=== PATIENT | male | born 1970 | race Caucasian/White ===

== ENCOUNTER 2018-06-16 00:27 | Emergency (ER) | payer OTHER, BC ==
[2018-06-16] MEDS ORDERED: Pepcid 20 MG VIAL IV (00:49)
[2018-06-16] MEDS ORDERED: BABY ASPIRIN 81 MG CHEW (00:49)
[2018-06-16] MEDS ORDERED: MAALOX ES 30 ML UNIT DOSE (00:50)
[2018-06-16] MEDS ORDERED: XYLOCAINE HCl Viscous (00:50)
[2018-06-16] MEDS: GI COCKTAIL 45 ML (Maalox/Lidocaine) PO (00:57)
[2018-06-16] MEDS: BABY ASPIRIN 81 MG CHEW PO (00:57)
[2018-06-16] MEDS: Pepcid 20 MG VIAL IV (00:58)
[2018-06-16 00:59] LABS: BASOPHIL % 0.5 % (0.0-0.4); Basophil (Absolute #) 0.03 (0-0.4); Eosinophil % 1.6 % (0.00-5.0); Eosinophil (Absolute #) 0.09 (0-0.5); Granulocytes % 41.2 % (36.0-66.0); Hematocrit 41.5 % (42-50); Lymphocyte (Absolute #) 2.52 (1.0-4.6); Lymphocytes % 45.1 % (24.0-44.0); Mean Cell Volume 88.3 fl (78-100); Mean Corpuscular Hemoglobin 31.9 pg (26-32); Mean Corpuscular Hgb Concent. 36.1 g/dl (32-36); Mean Platelet Volume 9.3 fl (6-9.5); Monocyte (Absolute #) 0.65 (0.0-1.3); Monocytes % 11.6 % (0.0-12.0); Platelet Count 233 K/mm3 (150-450); White Blood Count 5.6 K/mm3 (4.0-10.5)
[2018-06-16 01:03] LABS: ADD MANUAL DIFF? NO (NO)
[2018-06-16 01:11] LABS: PROTIME 11.9 SECONDS (8.83-12.87)
[2018-06-16 01:11] LABS: INR 1.02 (0.8-3.0)
[2018-06-16 01:19] LABS: D-DIMER QUANTITATION < 215 ng/mL (215-500)
[2018-06-16 01:25] LABS: ALBUMIN 4.6 g/dL (3.5-5.0); ALKALINE PHOSPHATASE 58 U/L (38-126); ANION GAP 14.8 MEQ/L (5-15); BLOOD UREA NITROGEN 21 mg/dL (9-20); CHLORIDE 100 mmol/L (98-107); Calcium 9.3 mg/dL (8.4-10.2); Carbon Dioxide 27 mmol/L (22-30); Creatinine 1 0.88 mg/dL (0.66-1.25); EST GLOMERULAR FILTRATION RATE > 60.0 ML/MIN; Glucose 259 mg/dL (74-106); Potassium 4.3 mmol/L (3.5-5.1); SGOT/AST 25 U/L (17-59); SGPT/ALT 34 U/L (0-50); SODIUM 138 mmol/L (137-145); Total Protein 7.4 g/dL (6.3-8.2)
[2018-06-16 01:28] LABS: TROPONIN < 0.012 ng/mL (0.000-0.034)
[2018-06-16 01:30] LABS: Group A Strep NEGATIVE (NEGATIVE)
[2018-06-16] MEDS ORDERED: MORPHINE SULFATE 4 MG INJ (01:49)
[2018-06-16] MEDS ORDERED: Zofran 4 MG/2 ML VIAL (01:49)
[2018-06-16] MEDS: MORPHINE SULFATE 4 MG INJ IV (01:52)
[2018-06-16] MEDS: Zofran 4 MG/2 ML VIAL IV (01:52)
[2018-06-16] MEDS ORDERED: CLINDAMYCIN-D5W 600 MG/50 ML*** 600 MG/50 ML BAG IV (02:29)
[2018-06-16] MEDS: CLINDAMYCIN-D5W 600 MG/50 ML*** 600 MG/50 ML BAG IV (02:32)
[2018-06-16 04:01] LABS: TROPONIN < 0.012 ng/mL (0.000-0.034)
[2018-06-16] MEDS ORDERED: TORAdol 30 mg Injection (04:28)
[2018-06-16] MEDS: TORAdol 30 mg Injection IV (04:31)
== END 2018-06-16 05:05 | disposition home or self-care (01) ==
LOC: ED 00:27
CPT/HCPCS: 36000; 36415; 71046; 80053; 83880; 84484; 85025; 85379; 85610; 87651; 93005; 93041; 96374; 96375; J1885; J2270; J2405

== ENCOUNTER 2018-12-17 10:25 | Day surgery (SDC) | payer BC, OTHER ==
[~2018-12-17 10:25] MED LIST: Lactated Ringers 1,000 ML IV ONE; Sensorcaine 0.25% 10 ML ONE
[2018-12-17] MEDS ORDERED: DIPRIVAN 200 MG/20 ML IV ONE (10:26)
[2018-12-17] MEDS ORDERED: Quelicin Fliptop 200 MG/10 ML IJ ONE (10:26)
[2018-12-17] MEDS ORDERED: Versed 2 MG/2 ML Injection IV ONE (10:26)
[2018-12-17] MEDS ORDERED: SUBLIMAZE 100 MCG/2 ML IV ONE (10:26)
[2018-12-17] MEDS ORDERED: CLINDAMYCIN-D5W 900 MG/50 ML IV ONE (10:26)
[2018-12-17] MEDS ORDERED: Lactated Ringers 1,000 ML IV ONE (10:33)
[2018-12-17] MEDS ORDERED: Lactated Ringers 1,000 ML IV SCH (11:00)
--- NOTE | 2018-12-17 12:30 | HP ---
REDICTATION: DATE OF SURGERY: 12/17/2018 HISTORY OF PRESENT ILLNESS: A 48 year-old gentleman had problems with three to four months ago had a left shoulder painful ruptured cyst site increasing in size, increasing pain. Placed him on some Bactrim and it had gotten smaller but was still present and desires excisional biopsy to reduce the risk of recurrent flare up, aches and pains in the future. PAST MEDICAL HISTORY: Diabetes, psoriatic arthritis. PAST SURGICAL HISTORY: Heart cath. Cholecystectomy. MEDICATIONS: Januvia, methotrexate, Humalog, Lyrica, lisinopril, Metformin, trazodone, folic acid, atorvastatin. ALLERGIES: PENICILLIN, KEFLEX, BENADRYL, ERYTHROMYCIN, BENICAR. FAMILY HISTORY: Cancer, diabetes. SOCIAL HISTORY: No smoking or alcohol abuse. REVIEW OF SYSTEMS: Twelve systems reviewed per admission assessment. No chest pain or palpitations other systems negative or noncontributory as above and per preadmission questionnaire. PHYSICAL EXAMINATION: GENERAL: No acute distress. HEENT: Sclerae nonicteric. NECK: No JVD. CHEST: Equal excursion, nonlabored breathing. CVS: Regular rate and rhythm. ABDOMEN: Soft, nontender. EXTREMITIES: No significant edema. NEURO: Alert, moving extremities symmetrically. No gross motor deficits noted. BACK: He has had persistent nodule or cyst left flank, back/shoulder area. IMPRESSION: Ruptured cyst site back that needs excision for definitive treatment. Risks and benefits explained in detail including but not limited to bleeding or infection, risk of wound dehiscence possibly requiring packing, possibility if there is infection at the time may require packing strip at the time of surgery. The fact that what we excise once he heals the wound will not recur but could get similar cyst or nodule adjacent to or elsewhere on his back or body, general risk of anesthesia, deep venous thrombosis, pulmonary embolism or pneumonia but not limited to. He understands and agrees to the planned procedure. We will proceed with excisional biopsy of ruptured back cyst site as an outpatient.
[2018-12-17] MEDS ORDERED: Triple Antibiotic Ointment ONE (12:38)
[2018-12-17 16:31] VITALS: BP 143/89; PULSE 77; O2SAT 96
--- NOTE | 2018-12-18 09:41 | OP ---
SURGERY DATE/TIME: 12/17/2018 1200 PREOPERATIVE DIAGNOSIS: Persistent ruptured cyst site back. POSTOPERATIVE DIAGNOSIS: Persistent ruptured cyst site back. PROCEDURE: Excisional biopsy ruptured back cyst site (approximately 3.5 cm with margins) with intermediate closure. SURGEON: Dr. Osman Oliva. SUPERVISOR POWER REACTOR: Víctor Walden, Medical Student III. ANESTHESIA: General. ESTIMATED BLOOD LOSS: Minimal. INDICATIONS: As noted above. Risks and benefits explained in detail and not limited to and consent obtained. DESCRIPTION OF PROCEDURE AND FINDINGS: The patient is taken to the operating room. General anesthesia induced. Back prepped and draped in usual sterile fashion in lateral position. Appropriate position and padding per anesthesia and OR staff. He is prepped and draped in usual sterile fashion. Marking out in spindle-shaped area around this palpable deeper cyst on the back, dissection carried down through the underlying fascia where it is carefully dissected off the underlying fascia. There was a small amount of caseous material exuding from the ruptured cyst site. It was able to be excised and measured about 3.5 cm with margins and passed off. There did not appear to be any evidence of any residual cyst material or any evidence of any cyst wall. There was a perforated pulsatile artery in the base of the wound controlled with 3-0 Vicryl suture ligature. Good hemostasis noted. Wound is irrigated out. Subcu closed with 3-0 Vicryl. Superficial subcu closed with 3-0 Vicryl. Skin closed with 4-0 Vicryl. Steri-Strips and sterile dressing applied. Patient tolerated the procedure well. There were no immediate complications. Findings were discussed with the family out in the waiting area. He is to avoid any heavy lifting or excessive back bending over the next three or four weeks. I will see him back in the office in a week and a half to two weeks for suture removal.
== END 2018-12-17 14:55 | disposition home or self-care (01) ==
LOC: SDC 10:25
PROVIDERS: ATTEND Surgery
DX: D23.5 Other benign neoplasm of skin of trunk (principal)
CPT/HCPCS: J0330; J2250; J2704; J3010; A9270-GY

== ENCOUNTER 2020-01-30 08:45 | Emergency (ER) | payer BC ==
[2020-01-30] MEDS ORDERED: BABY ASPIRIN 81 MG CHEW PO ONE (08:55)
[2020-01-30] MEDS ORDERED: Sodium Chloride 0.9% 1000 ML 1,000 ML IV STA (08:55)
[2020-01-30] MEDS ORDERED: Zofran 4 MG/2 ML VIAL IV ONE (08:57)
[2020-01-30] MEDS ORDERED: BABY ASPIRIN 81 MG CHEW ONE (09:03)
[2020-01-30] MEDS ORDERED: Zofran 4 MG/2 ML VIAL ONE ×2 (09:03→09:06)
[2020-01-30] MEDS ORDERED: Sodium Chloride 0.9% 1000 ML 1,000 ML ONE (09:04)
[2020-01-30 09:07] LABS: VBG BASE EXCESS -4.8 (-2.0-2.0); VBG HCO3- 19.7 meq/L (22-28); VBG HEMOGLOBIN 17.7; VBG O2 SATURATION 94.8 (95-100); VBG POTASSIUM 4.5 (3.5-5.1); VBG pH 7.37 (7.32-7.42)
[2020-01-30] MEDS ORDERED: DECADRON 10MG INJ. IV ONE (09:19)
--- NOTE | 2020-01-30 09:21 | ERPHSYRPT ---
- History of Present Illness Time Seen by Provider: 01/30/20 08:47 Source: patient Exam Limitations: no limitations Patient Subjective Stated Complaint: pt here for sob that started today with a nonproductive cough, and n/v/d for 36 hours now, he is unable to keep fluids d own, Triage Nursing Assessment: pt alert, arrived per wc, resp easy, chest clear, skin w/d/p. has mask in place, moves all ext well Physician History: Patient is here with nausea, vomiting, diarrhea. Has been going on for 2 to 3 days. Patient states that he woke up having more shortness of breath this morning. No falls or other trauma. No fever or chills. He does describe a nonproductive cough. He works from home. No known COVID-19 exposures. Patient does have shortness of breath but no chest pain, diaphoresis. Location: abdomen Quality: N/V/D Radiation: none Severity: moderate Duration: 2-3 Timing: gradual Modifying factors/associated signs and symptoms: home medication, OTC Allergies/Adverse Reactions: cephalexin [From Keflex] Allergy (Severe, Verified 01/30/20 08:50) diphenhydramine HCl [From Benadryl] Allergy (Severe, Verified 01/30/20 08:50) Tightness of Throat had to call EMS erythromycin base Allergy (Severe, Verified 01/30/20 08:50) Shortness of Breath olmesartan Allergy (Severe, Verified 01/30/20 08:50) Difficulty Swallowing Penicillins Allergy (Severe, Verified 01/30/20 08:50) Shortness of Breath unknown, states "when i was a kid,my mom always said" Home Medications: Atorvastatin Calcium [Lipitor] 40 mg PO HS 07/28/14 [History] Pregabalin [Lyrica 150Mg] 200 mg PO TID 07/28/14 [History] Folic Acid 1 mg PO DAILY 12/12/18 [History] Ibuprofen [Advil] 200 mg PO DAILY PRN PRN 12/12/18 [History] Insulin Glargine,Hum.rec.anlog [Santosh Solostar] 80 unit SQ DAILY 12/12/18 [History] Insulin Lispro [Humalog] 60 unit SQ TIDWMEALS 12/12/18 [History] Lisinopril/Hydrochlorothiazide [Lisinopril-Hctz 20-12.5 mg Tab] 1 each PO DAILY 12/12/18 [History] Metformin HCl 850 mg [Glucophage 850 MG] 850 mg PO BID 12/12/18 [History] Trazodone HCl 100 mg PO HS 12/12/18 [History] Methotrexate Sodium/Pf [Methotrexate 25 mg/ml Vial] 7.5 mg IJ WEEKLY 12/17/18 [History] Semaglutide [Ozempic] 1 ea DAILY 01/30/20 [History] Hx Tetanus, Diphtheria Vaccination/Date Given: No Hx Influenza Vaccination/Date Given: Yes Hx Pneumococcal Vaccination/Date Given: No Immunizations Up to Date: Yes Travel Risk - International Travel Have you traveled outside of the country in past 3 weeks: No - Coronavirus Screening Are you exhibiting any of the following symptoms?: Yes Symptoms: Cough: New Onset, Shortness of Breath, Vomiting/Diarrhea, Headaches/Body Aches/Fatigue Close contact with a COVID-19 positive Pt in past 14-21 Days: No - Review of Systems Constitutional: No Fever, No Chills Eyes: No Symptoms Ears, Nose, & Throat: No Symptoms Respiratory: Cough, Dyspnea Cardiac: No Chest Pain, No Edema, No Syncope Abdominal/Gastrointestinal: Nausea, Vomiting, Diarrhea, No Abdominal Pain Genitourinary Symptoms: No Dysuria Musculoskeletal: No Back Pain, No Neck Pain Skin: No Rash Neurological: No Dizziness, No Focal Weakness, No Sensory Changes Psychological: No Symptoms Endocrine: No Symptoms All Other Systems: Reviewed and Negative - Past Medical History Pertinent Past Medical History: Yes Neurological History: No Pertinent History ENT History: No Pertinent History Cardiac History: High Cholesterol, Hypertension Respiratory History: No Pertinent History Endocrine Medical History: Diabetes Type II Musculoskeletal History: Degenerative Disk Disease GI Medical History: No Pertinent History History: No Pertinent History Psycho-Social History: No Pertinent History Male Reproductive Disorders: No Pertinent History Other Medical History: psoriatic arthritis - Past Surgical History Past Surgical History: Yes Neuro Surgical History: No Pertinent History Cardiac: Cardiac Catheterization Respiratory: No Pertinent History Gastrointestinal: Cholecystectomy Genitourinary: No Pertinent History Musculoskeletal: Orthopedic Surgery Male Surgical History: No Pertinent History Other Surgical History: inj. in back - Social History Smoking Status: Never smoker Exposure to second hand smoke: No Drug Use: none Patient Lives Alone: No - Nursing Vital Signs Nursing Vital Signs: Initial Vital Signs Temperature 98.7 F 01/30/20 08:46 Pulse Rate 96 H 01/30/20 08:46 Respiratory Rate 24 01/30/20 08:46 Blood Pressure 138/86 01/30/20 08:46 O2 Sat by Pulse Oximetry 95 01/30/20 08:46 Pain Scale Pain Intensity 0 - Physical Exam General Appearance: no apparent distress, alert Eye Exam: PERRL/EOMI, eyes nml inspection Ears, Nose, Throat Exam: normal ENT inspection, TMs normal, pharynx normal, moist mucous membranes Neck Exam: normal inspection, non-tender, supple, full range of motion Respiratory Exam: normal breath sounds, lungs clear, No respiratory distress Cardiovascular Exam: regular rate/rhythm, normal heart sounds, normal peripheral pulses Gastrointestinal/Abdomen Exam: soft, normal bowel sounds, No tenderness, No mass Back Exam: normal inspection, normal range of motion, No CVA tenderness, No vertebral tenderness Extremity Exam: normal inspection, normal range of motion, pelvis stable Neurologic Exam: alert, oriented x 3, cooperative, normal mood/affect, nml cerebellar function, nml station & gait, sensation nml, No motor deficits Skin Exam: normal color, warm, dry, No rash Lymphatic Exam: No adenopathy SpO2: 94 - Course Nursing assessment & vital signs reviewed: Yes EKG Interpreted by Me: RATE, Sinus Rhythm (Patient has sinus rhythm, appears to have a repolarization pattern with nonspecific ST changes. However, we will repeat EKG in 20 minutes to ensure that this is not a developing STEMI) Ordered Tests: Active Orders 24 hr Category Date Time Status EKG-ER Only STAT Care 01/30/20 08:55 Active EKG-ER Only STAT Care 01/30/20 09:12 Active IV Insertion STAT Care 01/30/20 08:55 Active ABDOMEN AND PELVIS W CONTRAST [CT] Stat Exams 01/30/20 09:53 Completed CHEST 2 VIEWS (PA AND LAT) Stat Exams 01/30/20 08:55 Completed CHEST WITH CONTRAST [CT] Stat Exams 01/30/20 09:53 Completed BLOOD CULTURE Stat Lab 01/30/20 08:55 Received CBC W DIFF Stat Lab 01/30/20 08:55 Completed CMP Stat Lab 01/30/20 08:55 Completed CULTURE,URINE Stat Lab 01/30/20 12:42 Received LIPASE Stat Lab 01/30/20 08:55 Completed Lactic Acid Stat Lab 01/30/20 09:03 Completed MAGNESIUM Stat Lab 01/30/20 08:55 Completed NT PRO BNP Stat Lab 01/30/20 08:55 Completed TROPONIN Q3H Lab 01/30/20 09:00 Completed TROPONIN Q3H Lab 01/30/20 12:10 Completed TROPONIN Q3H Lab 01/30/20 15:00 Ordered TROPONIN Q3H Lab 01/30/20 18:00 Ordered TROPONIN Q3H Lab 01/30/20 21:00 Ordered UA W/RFX UR CULTURE Stat Lab 01/30/20 12:42 Received VBG [VENOUS BLOOD GAS] Stat Lab 01/30/20 09:03 Completed Medication Summary Discontinued Medications Generic Name Dose Route Start Last Admin Trade Name Freq PRN Reason Stop Dose Admin Aspirin 324 mg 01/30/20 08:55 01/30/20 09:06 Baby Aspirin 81 Mg Chew PO 01/30/20 08:56 324 mg STAT ONE Administration Aspirin Confirm 01/30/20 09:03 Baby Aspirin 81 Mg Chew Administered 01/30/20 09:04 Dose 324 mg .ROUTE .STK-MED ONE Dexamethasone Sodium Phosphate 10 mg 01/30/20 09:19 01/30/20 09:24 Decadron 10mg Inj. IV 01/30/20 09:20 10 mg STAT ONE Administration Dexamethasone Sodium Phosphate Confirm 01/30/20 09:23 Decadron 10mg Inj. Administered 01/30/20 09:24 Dose 10 mg .ROUTE .STK-MED ONE Sodium Chloride 1,000 mls @ 999 mls/hr 01/30/20 08:55 01/30/20 11:03 Sodium Chloride 0.9% 1000 Ml IV 01/30/20 09:55 Infused .Q1H1M STA Infusion Sodium Chloride Confirm 01/30/20 09:04 Sodium Chloride 0.9% 1000 Ml Administered 01/30/20 09:05 Dose 1,000 mls @ ud .ROUTE .STK-MED ONE Ondansetron HCl 8 mg 01/30/20 08:57 01/30/20 09:05 Zofran 4 Mg/2 Ml Vial IV 01/30/20 08:58 8 mg STAT ONE Administration Ondansetron HCl Confirm 01/30/20 09:03 Zofran 4 Mg/2 Ml Vial Administered 01/30/20 09:04 Dose 4 mg .ROUTE .STK-MED ONE Ondansetron HCl Confirm 01/30/20 09:06 Zofran 4 Mg/2 Ml Vial Administered 01/30/20 09:07 Dose 4 mg .ROUTE .STK-MED ONE Lab/Rad Data: Laboratory Result Diagrams 01/30/20 08:55 01/30/20 08:55 Laboratory Results 01/30/20 01/30/20 01/30/20 Range/Units 12:10 09:03 09:03 WBC (4.0-10.5) K/mm3 RBC (4.1-5.6) M/mm3 Hgb (12.5-18.0) gm/dl Hct (42-50) % MCV (78-100) fl MCH (26-32) pg MCHC (32-36) g/dl RDW (11.5-14.0) % Plt Count (150-450) K/mm3 MPV (7.5-11.0) fl Gran % (36.0-66.0) % Eos # (Auto) (0-0.5) Absolute Lymphs (auto) (1.0-4.6) Absolute Monos (auto) (0.0-1.3) Lymphocytes % (24.0-44.0) % Monocytes % (0.0-12.0) % Eosinophils % (0.00-5.0) % Basophils % (0.0-0.4) % Absolute Granulocytes (1.4-6.9) Basophils # (0-0.4) pO2/FiO2 Ratio 21 % VBG pH 7.37 (7.32-7.42) VBG pCO2 at Pat Temp 34 L (42-55) mm/Hg VBG pO2 at Pat Temp 68 H (25-40) mm/Hg VBG HCO3 19.7 L (22-28) meq/L VBG O2 Sat (Kai) 94.8 L (95-100) VBG Base Excess -4.8 L (-2.0-2.0) VBG Hemoglobin 17.7 VBG Carboxyhemoglobin 2.0 (0.0-6.9) % T HGB POC Potassium 4.5 (3.5-5.1) Sodium (137-145) mmol/L Potassium (3.5-5.1) mmol/L Chloride (98-107) mmol/L Carbon Dioxide (22-30) mmol/L Anion Gap (5-15) MEQ/L BUN (9-20) mg/dL Creatinine (0.66-1.25) mg/dL Estimated GFR ML/MIN Glucose (74-106) mg/dL Lactic Acid 1.2 (0.4-2.0) Calcium (8.4-10.2) mg/dL Magnesium (1.6-2.3) mg/dL Total Bilirubin (0.2-1.3) mg/dL AST (17-59) U/L ALT (0-50) U/L Alkaline Phosphatase (38-126) U/L Troponin I < 0.012 (0.000-0.034) ng/mL NT-Pro-B Natriuret Pep (0-900) pg/mL Serum Total Protein (6.3-8.2) g/dL Albumin (3.5-5.0) g/dL Lipase (23-300) U/L 01/30/20 01/30/20 01/30/20 Range/Units 09:00 08:55 08:55 WBC 10.9 H (4.0-10.5) K/mm3 RBC 5.76 H (4.1-5.6) M/mm3 Hgb 17.7 (12.5-18.0) gm/dl Hct 49.1 (42-50) % MCV 85.2 (78-100) fl MCH 30.7 (26-32) pg MCHC 36.0 (32-36) g/dl RDW 13.4 (11.5-14.0) % Plt Count 332 (150-450) K/mm3 MPV 9.9 (7.5-11.0) fl Gran % 75.2 H (36.0-66.0) % Eos # (Auto) 0.07 (0-0.5) Absolute Lymphs (auto) 1.99 (1.0-4.6) Absolute Monos (auto) 0.60 (0.0-1.3) Lymphocytes % 18.3 L (24.0-44.0) % Monocytes % 5.5 (0.0-12.0) % Eosinophils % 0.6 (0.00-5.0) % Basophils % 0.4 (0.0-0.4) % Absolute Granulocytes 8.17 H (1.4-6.9) Basophils # 0.04 (0-0.4) pO2/FiO2 Ratio % VBG pH (7.32-7.42) VBG pCO2 at Pat Temp (42-55) mm/Hg VBG pO2 at Pat Temp (25-40) mm/Hg VBG HCO3 (22-28) meq/L VBG O2 Sat (Kai) (95-100) VBG Base Excess (-2.0-2.0) VBG Hemoglobin VBG Carboxyhemoglobin (0.0-6.9) % T HGB POC Potassium (3.5-5.1) Sodium 135 L (137-145) mmol/L Potassium 4.4 (3.5-5.1) mmol/L Chloride 102 (98-107) mmol/L Carbon Dioxide 18 L (22-30) mmol/L Anion Gap 18.8 H (5-15) MEQ/L BUN 37 H (9-20) mg/dL Creatinine 1.50 H (0.66-1.25) mg/dL Estimated GFR 52.4 ML/MIN Glucose 248 H (74-106) mg/dL Lactic Acid (0.4-2.0) Calcium 9.7 (8.4-10.2) mg/dL Magnesium 1.2 L (1.6-2.3) mg/dL Total Bilirubin 1.70 H (0.2-1.3) mg/dL AST 24 (17-59) U/L ALT 43 (0-50) U/L Alkaline Phosphatase 82 (38-126) U/L Troponin I < 0.012 (0.000-0.034) ng/mL NT-Pro-B Natriuret Pep 13.2 (0-900) pg/mL Serum Total Protein 9.0 H (6.3-8.2) g/dL Albumin 5.3 H (3.5-5.0) g/dL Lipase 79 (23-300) U/L - Progress Progress: improved Progress Note: 01/30/20 09:29 Differential diagnosis includes STEMI, infection, pneumonia, DKA, unstable angina - We'll obtain basic labs, fluids, EKG, troponin, chest x-ray - O2 saturations consistently greater than 95%. - CXR shows no pneumonia, pneumothorax - my read 01/30/20 09:41 Repeat EKG at [address] repolarization he has not evolved any new ST segment elevation EKGs were done approximately 40 minutes apart there appears to be no obvious changes consistent with a developing STEMI my read. 01/30/20 13:03 Patient feeling improved. Repeat troponin remained negative as expected. Overall, patient feeling improved. No further episodes of diarrhea or vomiting in the ER. No further episodes of chest pain. At this point time we will discharge patient home. Will need close follow-up with PCP. Return here for new or changing symptoms. Counseled pt/family regarding: lab results, diagnosis, need for follow-up, rad results - Departure Departure Disposition: Home Clinical Impression: Vomiting and diarrhea Condition: Stable Critical Care Time: No Instructions: [place] Diet, Nausea and Vomiting, Adult
[2020-01-30] MEDS ORDERED: DECADRON 10MG INJ. ONE (09:23)
[2020-01-30 09:40] LABS: Absolute Neutrophil Ct (ANC) 8.17 (1.4-6.9); BASOPHIL % 0.4 % (0.0-0.4); Basophil (Absolute #) 0.04 (0-0.4); Eosinophil % 0.6 % (0.00-5.0); Eosinophil (Absolute #) 0.07 (0-0.5); Hematocrit 49.1 % (42-50); Hemoglobin 17.7 gm/dl (12.5-18.0); Lymphocyte (Absolute #) 1.99 (1.0-4.6); Lymphocytes % 18.3 % (24.0-44.0); Mean Cell Volume 85.2 fl (78-100); Mean Corpuscular Hemoglobin 30.7 pg (26-32); Mean Platelet Volume 9.9 fl (7.5-11.0); Monocytes % 5.5 % (0.0-12.0); Neutrophil % 75.2 % (36.0-66.0); Platelet Count 332 K/mm3 (150-450); Red Blood Count 5.76 M/mm3 (4.1-5.6); Red Cell Distribution Width 13.4 % (11.5-14.0); White Blood Count 10.9 K/mm3 (4.0-10.5)
--- NOTE | 2020-01-30 09:40 | XRAY ---
Indication: Chest pain, short of breath, diarrhea. Comparison: June 16, 2018. PA/lateral chest remains clear. Heart is not enlarged. Bony thorax intact again with minimal degenerative changes. Impression: Continued nonacute chest.
[2020-01-30 09:54] LABS: ALBUMIN 5.3 g/dL (3.5-5.0); ANION GAP 18.8 MEQ/L (5-15); BILIRUBIN,TOTAL 1.7 mg/dL (0.2-1.3); Calcium 9.7 mg/dL (8.4-10.2); Creatinine 1 1.5 mg/dL (0.66-1.25); MAGNESIUM 1.2 mg/dL (1.6-2.3); NT PRO BNP 13.2 pg/mL (0-900); Potassium 4.4 mmol/L (3.5-5.1)
--- NOTE | 2020-01-30 11:39 | XRAY ---
Indication: Chest pain and short of breath. Diarrhea and vomiting. Multiple contiguous axial images obtained through the abdomen and pelvis using 80 cc Isovue 370 contrast only as ordered. Comparison: None. CT chest reported separately. Noncontrasted stomach and bowel loops are nonobstructed. Normal appendix. Mild scattered descending and lesser degree sigmoid diverticulosis. Minimal fluid distending colon including rectum favoring clinically reported diarrhea. Previous cholecystectomy. No free fluid/air. Spleen is enlarged measuring 16 cm. Remaining liver, pancreas, spleen, adrenal glands, kidneys, ureters, bladder, and aorta appear unremarkable. No pathologic retroperitoneal lymphadenopathy. Osseous structures intact with minimal degenerative changes throughout the lumbar spine and mild degenerative changes of both hips. No ventral or inguinal hernias. Impression: 1. Minimal fluid distended colon favoring clinically reported diarrhea. Mild colonic diverticulosis without diverticulitis. 2. Incidental splenomegaly and chronic bony findings. 3. Remaining CT abdomen/pelvis with contrast exam is negative.
--- NOTE | 2020-01-30 11:42 | XRAY ---
Indication: Chest pain and short of breath. Diarrhea and vomiting. Multiple contiguous axial images obtained through the chest using 80 cc Isovue 370 contrast and PE protocol. Comparison: March 19, 2010. There is good opacification of the pulmonary arteries to include the lobar and segmental branches. Again no filling defect/pulmonary embolus. Heart is not enlarged. Aorta is normal in course and caliber. No pathologic mediastinal/hilar lymphadenopathy. Lungs inflated with minimal medial right middle lobe and inferior lingula fibrosis/scarring. No suspicious pulmonary mass, infiltrate, or effusion. Bony thorax intact. CT abdomen reported separately. Impression: Continued negative for pulmonary embolus. Incidental minimal pulmonary fibrosis/scarring. No acute cardiopulmonary abnormalities.
[2020-01-30 12:43] LABS: Appearance CLEAR (CLEAR); Bilirubin NEGATIVE (NEGATIVE); Blood NEGATIVE Ery/ul (0-5); Epithelial Cells RARE /HPF (FEW); Glucose 150 mg/dL (NEGATIVE); Hyaline Casts 0-2 /LPF (0-2); Ketones NEGATIVE (NEGATIVE); Leukocyte Esterase NEGATIVE (NEGATIVE); Mucus SLIGHT /HPF (NEGATIVE); Nitrite NEGATIVE (NEGATIVE); Protein,Urine Dip NEGATIVE (Negative); Specific Gravity 1.055 (1.005-1.025); Urobilinogen NEGATIVE mg/dL (0-1)
[2020-01-30 13:25] VITALS: BP 116/78; PULSE 82; O2SAT 95
== END 2020-01-30 13:25 | disposition home or self-care (01) ==
LOC: ED 08:45
DX: R11.10 Vomiting, unspecified (principal); R19.7 Diarrhea, unspecified; I10 Essential (primary) hypertension; E11.9 Type 2 diabetes mellitus without complications; Z79.899 Other long term (current) drug therapy
CPT/HCPCS: 36000; 36415; 71046; 71260; 74177; 80053; 81001; 82805; 83605; 83690; 83735; 83880; 84484; 85025; 87040; 87086; 93005; 96360; 96374; 96375; 99285; J1100; J2405; A9270-GY

== ENCOUNTER 2020-12-17 15:55 | Emergency (ER) | payer BC, OTHER ==
--- NOTE | 2020-12-17 15:59 | ERPHSYRPT ---
- History of Present Illness Time Seen by Provider: 12/17/20 15:58 Source: patient Exam Limitations: no limitations Physician History: This is an obese, diabetic 50-year-old white male with history of hypertension and presents with right groin abscess. Approximately 6 days ago he noticed pimple present and he attempted to squeeze and pop this area. It did not go away and in fact worsened in the last 2 days. He had associated fever present. The redness and pain has increased in this area as well. Timing/Duration: day(s) (6) Quality: painful Severity: mild Location: other (Right groin) Possible Causes: no cause identified Associated Symptoms: fever, swelling/mass/lumps (Right groin) Allergies/Adverse Reactions: cephalexin [From Keflex] Allergy (Severe, Verified 12/17/20 16:13) diphenhydramine HCl [From Benadryl] Allergy (Severe, Verified 12/17/20 16:13) Tightness of Throat had to call EMS erythromycin base Allergy (Severe, Verified 12/17/20 16:13) Shortness of Breath olmesartan Allergy (Severe, Verified 12/17/20 16:13) Difficulty Swallowing Penicillins Allergy (Severe, Verified 12/17/20 16:13) Shortness of Breath unknown, states "when i was a kid,my mom always said" Home Medications: Atorvastatin Calcium [Lipitor] 40 mg PO HS 07/28/14 [History] Pregabalin [Lyrica 150Mg] 200 mg PO TID 07/28/14 [History] Folic Acid 1 mg PO DAILY 12/12/18 [History] Ibuprofen [Advil] 200 mg PO DAILY PRN PRN 12/12/18 [History] Insulin Lispro [Humalog] 60 unit SQ TIDWMEALS 12/12/18 [History] Lisinopril/Hydrochlorothiazide [Lisinopril-Hctz 20-12.5 mg Tab] 1 each PO DAILY 12/12/18 [History] Metformin HCl 850 mg [Glucophage 850 MG] 850 mg PO BID 12/12/18 [History] Trazodone HCl 100 mg PO HS 12/12/18 [History] Methotrexate Sodium/Pf [Methotrexate 25 mg/ml Vial] 7.5 mg IJ WEEKLY 12/17/18 [History] NPH, Human Insulin Isophane [Humulin N] 40 unit SQ HS 12/17/20 [History] Omeprazole Magnesium 20 mg PO DAILY 12/17/20 [History] Oxcarbazepine [Trileptal] 300 mg PO DAILY 12/17/20 [History] Hx Tetanus, Diphtheria Vaccination/Date Given: No Hx Influenza Vaccination/Date Given: No Hx Pneumococcal Vaccination/Date Given: No Travel Risk - International Travel Have you traveled outside of the country in past 3 weeks: No - Coronavirus Screening Are you exhibiting any of the following symptoms?: No Close contact with a COVID-19 positive Pt in past 14-21 Days: No - Review of Systems Constitutional: Fever Eyes: No Symptoms Ears, Nose, & Throat: No Symptoms Respiratory: No Symptoms Cardiac: No Symptoms Abdominal/Gastrointestinal: No Symptoms Genitourinary Symptoms: No Symptoms Musculoskeletal: No Symptoms Skin: Other (Process right groin) Neurological: No Symptoms Psychological: No Symptoms Endocrine: No Symptoms Hematologic/Lymphatic: No Symptoms Immunological/Allergic: No Symptoms All Other Systems: Reviewed and Negative - Past Medical History Pertinent Past Medical History: Yes Neurological History: No Pertinent History ENT History: No Pertinent History Cardiac History: High Cholesterol, Hypertension Respiratory History: No Pertinent History Endocrine Medical History: Diabetes Type II Musculoskeletal History: Degenerative Disk Disease GI Medical History: No Pertinent History History: No Pertinent History Psycho-Social History: No Pertinent History Male Reproductive Disorders: No Pertinent History Other Medical History: psoriatic arthritis - Past Surgical History Past Surgical History: Yes Neuro Surgical History: No Pertinent History Cardiac: Cardiac Catheterization Respiratory: No Pertinent History Gastrointestinal: Cholecystectomy Genitourinary: No Pertinent History Musculoskeletal: Orthopedic Surgery Male Surgical History: No Pertinent History Other Surgical History: inj. in back - Social History Smoking Status: Never smoker Exposure to second hand smoke: No Drug Use: none Patient Lives Alone: No - Nursing Vital Signs Nursing Vital Signs: Initial Vital Signs Temperature 98.3 F 12/17/20 16:00 Pulse Rate 84 12/17/20 16:00 Blood Pressure 162/85 12/17/20 16:00 O2 Sat by Pulse Oximetry 97 12/17/20 16:00 Pain Scale Pain Intensity 4 - Physical Exam General Appearance: no apparent distress, alert, anxiety, obese Eye Exam: PERRL/EOMI, eyes nml inspection Ears, Nose, Throat Exam: normal ENT inspection, moist mucous membranes Neck Exam: normal inspection, non-tender, supple, full range of motion Respiratory Exam: normal breath sounds, accessory muscle use, No chest tenderness Cardiovascular Exam: regular rate/rhythm, normal heart sounds, normal peripheral pulses Gastrointestinal/Abdomen Exam: soft, normal bowel sounds, No tenderness Rectal Exam: not done Back Exam: normal inspection, normal range of motion, No CVA tenderness Extremity Exam: normal inspection, normal range of motion, pelvis stable Neurologic Exam: alert, oriented x 3, cooperative, 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 There is redness and induration present. There is mild tenderness to palpation.) Lymphatic Exam: No adenopathy SpO2 Interpretation: normal O2 Delivery: Room Air Procedures - Incision and Drainage Time of Procedure: 17:00 Site: 8 groin Anesthesia: 1% Lidocaine cc's of anesthesia: 2 Blade Size: 15 I & D Procedure: betadine prep, culture obtained Results: moderate amount pus Progress: No complications. Patient told the procedure well. - Course Nursing assessment & vital signs reviewed: Yes - Progress Progress: improved, pain not gone completely, re-examined Counseled pt/family regarding: diagnosis, need for follow-up - Departure Departure Disposition: Home Clinical Impression: Abscess of groin, right Condition: Stable Critical Care Time: No Referrals: ESTHER PIERCE [Primary Care Provider] - Additional Instructions: When you get home today, go into the shower and use soap and water to clean out the incision and drainage site. Do not apply any ointments or lotions or cream to the site. Use a hairdryer or blot dry the incision site. Cover with a bandage. Repeat this twice a day. Return to the emergency department in 24 hours for reevaluation. Take your medication as prescribed. Prescriptions: Hydrocodone/APAP 5/325 [[place] 5/325 mg] 1 each PO Q8H PRN PRN #10 tablet MDD 3 PRN Reason: Pain Smz/Tmp Ds Tablet [Bactrim Ds Tablet] 1 udtab PO BID #14 tablet
[2020-12-17 16:13] VITALS: BP 162/85; PULSE 84; O2SAT 97
[2020-12-17] MEDS ORDERED: NORCO 5/325 MG PO ONE (17:23)
[2020-12-17] MEDS ORDERED: BACTRIM DS TABLET PO ONE ×2 (17:23→17:31)
[2020-12-17] MEDS ORDERED: NORCO 5/325 MG ONE (17:31)
== END 2020-12-17 17:39 | disposition home or self-care (01) ==
LOC: ED 15:55
DX: L02.214 Cutaneous abscess of groin (principal); I10 Essential (primary) hypertension; E11.9 Type 2 diabetes mellitus without complications; Z79.899 Other long term (current) drug therapy
CPT/HCPCS: 87070; 87077; 87186; 99283; A9270-GY

== ENCOUNTER 2021-05-09 14:27 | Observation (INO) | payer OTHER ==
[2021-05-09] MEDS ORDERED: TORAdol 30 mg Injection IV ONE ×2 (14:57→17:30)
[2021-05-09] MEDS ORDERED: Sodium Chloride 0.9% 1000 ML 1,000 ML IV STA (14:57)
[2021-05-09] MEDS ORDERED: TORAdol 30 mg Injection ONE ×2 (14:59→17:39)
[2021-05-09] MEDS ORDERED: Sodium Chloride 0.9% 1000 ML 1,000 ML ONE ×2 (14:59→18:53)
--- NOTE | 2021-05-09 15:00 | ERPHSYRPT ---
- History of Present Illness Time Seen by Provider: 05/09/21 14:33 Historian: patient Exam Limitations: no limitations Patient Subjective Stated Complaint: Abdominal pain Triage Nursing Assessment: Patient ambulated back to ED and transferred self to bed. Patient A+O x3. Patient's skin pink, warm and dry. Patient complains of right lower abdominal pain 2/10 constant aching intermittent sharp pain that gets worse when movement. Rebound tenderness noted to RLQ. Patient complains of nausea, but denies vomiting. Abdomen soft and round with BS X 4. Patient has been running temp as high as 103.0 Physician History: 50 years old male presented in the ER with chief complaint of right lower quadrant/right flank pain for the last 2 days, moderate to severe sharp nature pain, aggravated with movements, palpation and partial relief with taking [id number] pain medications. Reports associated nausea but no vomiting or diarrhea. Also reports fever of 103 last night. [facility]. Does have history of cholecystectomy. Denies any urinary symptoms. Timing/Duration: day(s) (2), gradual onset, worse Activities at Onset: rest Quality: sharpness Abdominal Pain Onset Location: RLQ, flank Pain Radiation: no radiation Severity of Pain-Max: moderate Severity of Pain-Current: moderate Modifying Factors: Improves With: rest. Worsens With: movement, palpation Associated Symptoms: nausea Previous symptoms: no prior history Allergies/Adverse Reactions: cephalexin [From Keflex] Allergy (Severe, Verified 05/09/21 14:38) diphenhydramine HCl [From Benadryl] Allergy (Severe, Verified 05/09/21 14:38) Tightness of Throat had to call EMS erythromycin base Allergy (Severe, Verified 05/09/21 14:38) Shortness of Breath olmesartan Allergy (Severe, Verified 05/09/21 14:38) Difficulty Swallowing Penicillins Allergy (Severe, Verified 05/09/21 14:38) Shortness of Breath unknown, states "when i was a kid,my mom always said" morphine Allergy (Verified 05/09/21 14:39) Home Medications: Atorvastatin Calcium [Lipitor] 40 mg PO HS 07/28/14 [History] Pregabalin [Lyrica 150Mg] 200 mg PO TID 07/28/14 [History] Folic Acid 1 mg PO DAILY 12/12/18 [History] Insulin Lispro [Humalog] 60 unit SQ TIDWMEALS 12/12/18 [History] Lisinopril/Hydrochlorothiazide [Lisinopril-Hctz 20-12.5 mg Tab] 1 each PO DAILY 12/12/18 [History] Metformin HCl 850 mg [Glucophage 850 MG] 850 mg PO BID 12/12/18 [History] Trazodone HCl 100 mg PO HS 12/12/18 [History] Methotrexate Sodium/Pf [Methotrexate 25 mg/ml Vial] 7.5 mg IJ WEEKLY 12/17/18 [History] NPH, Human Insulin Isophane [Humulin N] 40 unit SQ HS 12/17/20 [History] Omeprazole Magnesium 20 mg PO DAILY 12/17/20 [History] Oxcarbazepine [Trileptal] 300 mg PO DAILY 12/17/20 [History] Hx Tetanus, Diphtheria Vaccination/Date Given: No Hx Influenza Vaccination/Date Given: Yes (2020) Hx Pneumococcal Vaccination/Date Given: No Immunizations Up to Date: Yes Travel Risk - International Travel Have you traveled outside of the country in past 3 weeks: No - Coronavirus Screening Are you exhibiting any of the following symptoms?: No Close contact with a COVID-19 positive Pt in past 14-21 Days: No - Vaccine Status Have you recieved a Covid-19 vaccination: Yes [place]: Moderna - Vaccination Dates Date of 2cond Vaccination (if applicable): 12/02/2020 - Past Medical History Pertinent Past Medical History: Yes Neurological History: No Pertinent History ENT History: No Pertinent History Cardiac History: High Cholesterol, Hypertension Respiratory History: No Pertinent History Endocrine Medical History: Diabetes Type II Musculoskeletal History: Degenerative Disk Disease GI Medical History: No Pertinent History History: No Pertinent History Psycho-Social History: No Pertinent History Male Reproductive Disorders: No Pertinent History Other Medical History: psoriatic arthritis - Past Surgical History Past Surgical History: Yes Neuro Surgical History: No Pertinent History Cardiac: Cardiac Catheterization Respiratory: No Pertinent History Gastrointestinal: Cholecystectomy Genitourinary: No Pertinent History Musculoskeletal: Orthopedic Surgery Male Surgical History: No Pertinent History Other Surgical History: inj. in back - Social History Smoking Status: Never smoker Exposure to second hand smoke: No Drug Use: none Patient Lives Alone: No - Nursing Vital Signs Nursing Vital Signs: Initial Vital Signs Temperature 98.7 F 05/09/21 14:43 Pulse Rate 87 05/09/21 14:43 Respiratory Rate 18 05/09/21 14:43 Blood Pressure 177/88 05/09/21 14:43 O2 Sat by Pulse Oximetry 95 05/09/21 14:43 Pain Scale Pain Intensity 2 - Physical Exam General Appearance: no apparent distress, alert Eye Exam: PERRL/EOMI Ears, Nose, Throat Exam: normal ENT inspection Neck Exam: normal inspection, supple, full range of motion Respiratory Exam: normal breath sounds, lungs clear Cardiovascular Exam: regular rate/rhythm, normal heart sounds Gastrointestinal/Abdomen Exam: soft, tenderness, guarding (Right lower quadrant /flank) Back Exam: normal inspection, normal range of motion, CVA tenderness (Right) Extremity Exam: normal inspection, normal range of motion Neurologic Exam: alert, oriented x 3, cooperative Skin Exam: normal color SpO2 Interpretation: normal SpO2: 95 O2 Delivery: Room Air Ordered Tests: Active Orders 24 hr Category Date Time Status IV Insertion STAT Care 05/09/21 14:57 Active NPO (ED) STAT Care 05/09/21 14:57 Active POCT Glucose Check STAT Care 05/09/21 18:09 Active ABDOMEN AND PELVIS W CONTRAST [CT] Stat Exams 05/09/21 14:57 Taken CBC W DIFF Stat Lab 05/09/21 15:03 Completed CMP Stat Lab 05/09/21 15:03 Completed LIPASE Stat Lab 05/09/21 15:03 Completed POCT GLUCOSE Stat Lab 05/09/21 18:08 Completed UA W/RFX UR CULTURE Stat Lab 05/09/21 14:59 Completed Medication Summary Generic Name Dose Route Start Last Admin Trade Name Freq PRN Reason Stop Dose Admin Levofloxacin/Dextrose 750 mg in 150 mls @ 100 mls/hr 05/09/21 18:50 05/09/21 19:26 Levofloxacin 750mg/150ml D5w IV 05/09/21 20:19 100 ml/hr STAT STA 100 mls/hr Administration Sodium Chloride 1,000 mls @ 125 mls/hr 05/09/21 19:00 05/09/21 18:57 Sodium Chloride 0.9% 1000 Ml IV 06/08/21 18:59 125 mls/hr .Q8H RYAN Administration Discontinued Medications Generic Name Dose Route Start Last Admin Trade Name Freq PRN Reason Stop Dose Admin Sodium Chloride 1,000 mls @ 999 mls/hr 05/09/21 14:57 05/09/21 16:04 Sodium Chloride 0.9% 1000 Ml IV 05/09/21 15:57 Infused .Q1H1M STA Infusion Sodium Chloride Confirm 05/09/21 14:59 Sodium Chloride 0.9% 1000 Ml Administered 05/09/21 15:00 Dose 1,000 mls @ ud .ROUTE .STK-MED ONE Metronidazole 500 mg in 100 mls @ 200 mls/hr 05/09/21 18:50 05/09/21 19:27 Flagyl 500 Mg Ivpb IV 05/09/21 19:19 Infused STAT STA Infusion Metronidazole Confirm 05/09/21 18:53 Flagyl 500 Mg Ivpb Administered 05/09/21 18:54 Dose 500 mg in 100 mls @ ud IV .STK-MED ONE Levofloxacin/Dextrose Confirm 05/09/21 19:22 Levofloxacin 750mg/150ml D5w Administered 05/09/21 19:23 Dose 750 mg in 150 mls @ ud IV .STK-MED ONE Insulin Human Regular 6 unit 05/09/21 18:10 05/09/21 18:14 Humulin R IV 05/09/21 18:11 6 unit STAT ONE Administration Protocol Insulin Human Regular Confirm 05/09/21 18:12 Humulin R Administered 05/09/21 18:13 Dose 6 unit .ROUTE .STK-MED ONE Ketorolac Tromethamine 30 mg 05/09/21 14:57 05/09/21 15:02 Toradol 30 Mg Injection IV 05/09/21 14:58 30 mg STAT ONE Administration Ketorolac Tromethamine Confirm 05/09/21 14:59 Toradol 30 Mg Injection Administered 05/09/21 15:00 Dose 30 mg .ROUTE .STK-MED ONE Ketorolac Tromethamine Confirm 05/09/21 17:39 Toradol 30 Mg Injection Administered 05/09/21 17:40 Dose 30 mg .ROUTE .STK-MED ONE Ketorolac Tromethamine 30 mg 05/09/21 17:30 05/09/21 17:30 Toradol 30 Mg Injection IV 05/09/21 17:31 30 mg STAT ONE Administration Lab/Rad Data: Laboratory Result Diagrams 05/09/21 15:03 05/09/21 15:03 Laboratory Results 05/09/21 05/09/21 05/09/21 Range/Units 18:08 15:03 15:03 WBC 8.2 (4.0-10.5) K/mm3 RBC 5.17 (4.1-5.6) M/mm3 Hgb 15.3 (12.5-18.0) gm/dl Hct 43.0 (42-50) % MCV 83.2 (78-100) fl MCH 29.6 (26-32) pg MCHC 35.6 (32-36) g/dl RDW 12.9 (11.5-14.0) % Plt Count 182 (150-450) K/mm3 MPV 9.1 (7.5-11.0) fl Gran % 76.8 H (36.0-66.0) % Eos # (Auto) 0.03 (0-0.5) Absolute Lymphs (auto) 1.33 (1.0-4.6) Absolute Monos (auto) 0.49 (0.0-1.3) Lymphocytes % 16.3 L (24.0-44.0) % Monocytes % 6.0 (0.0-12.0) % Eosinophils % 0.4 (0.00-5.0) % Basophils % 0.5 (0.0-0.4) % Absolute Granulocytes 6.27 (1.4-6.9) Basophils # 0.04 (0-0.4) Sodium 130 L (137-145) mmol/L Potassium 4.3 (3.5-5.1) mmol/L Chloride 96 L (98-107) mmol/L Carbon Dioxide 22 (22-30) mmol/L Anion Gap 16.2 H (5-15) MEQ/L BUN 19 (9-20) mg/dL Creatinine 0.98 (0.66-1.25) mg/dL Estimated GFR > 60.0 ML/MIN Glucose 417 H (74-106) mg/dL POC Glucometer 366 H (74 to 106) mg/dL Calcium 8.9 (8.4-10.2) mg/dL Total Bilirubin 2.70 H (0.2-1.3) mg/dL AST 19 (17-59) U/L ALT 25 (0-50) U/L Alkaline Phosphatase 71 (38-126) U/L Serum Total Protein 7.4 (6.3-8.2) g/dL Albumin 4.1 (3.5-5.0) g/dL Lipase 117 (23-300) U/L Urine Color (YELLOW) Urine Appearance (CLEAR) Urine pH (5-6) Ur Specific Marydel (1.005-1.025) Urine Protein (Negative) Urine Ketones (NEGATIVE) Urine Blood (0-5) Shlomo/ul Urine Nitrite (NEGATIVE) Urine Bilirubin (NEGATIVE) Urine Urobilinogen (0-1) mg/dL Ur Leukocyte Esterase (NEGATIVE) Urine WBC (Auto) (0-5) /HPF Urine RBC (Auto) (0-2) /HPF U Epithel Cells (Auto) (FEW) /HPF Urine Bacteria (Auto) (NEGATIVE) /HPF Urine Mucus (Auto) (NEGATIVE) /HPF Urine Culture Reflexed (NO) Urine Glucose (NEGATIVE) mg/dL 05/09/21 Range/Units 14:59 WBC (4.0-10.5) K/mm3 RBC (4.1-5.6) M/mm3 Hgb (12.5-18.0) gm/dl Hct (42-50) % MCV (78-100) fl MCH (26-32) pg MCHC (32-36) g/dl RDW (11.5-14.0) % Plt Count (150-450) K/mm3 MPV (7.5-11.0) fl Gran % (36.0-66.0) % Eos # (Auto) (0-0.5) Absolute Lymphs (auto) (1.0-4.6) Absolute Monos (auto) (0.0-1.3) Lymphocytes % (24.0-44.0) % Monocytes % (0.0-12.0) % Eosinophils % (0.00-5.0) % Basophils % (0.0-0.4) % Absolute Granulocytes (1.4-6.9) Basophils # (0-0.4) Sodium (137-145) mmol/L Potassium (3.5-5.1) mmol/L Chloride (98-107) mmol/L Carbon Dioxide (22-30) mmol/L Anion Gap (5-15) MEQ/L BUN (9-20) mg/dL Creatinine (0.66-1.25) mg/dL Estimated GFR ML/MIN Glucose (74-106) mg/dL POC Glucometer (74 to 106) mg/dL Calcium (8.4-10.2) mg/dL Total Bilirubin (0.2-1.3) mg/dL AST (17-59) U/L ALT (0-50) U/L Alkaline Phosphatase (38-126) U/L Serum Total Protein (6.3-8.2) g/dL Albumin (3.5-5.0) g/dL Lipase (23-300) U/L Urine Color YELLOW (YELLOW) Urine Appearance CLEAR (CLEAR) Urine pH 5.0 (5-6) Ur Specific Marydel 1.031 (1.005-1.025) Urine Protein NEGATIVE (Negative) Urine Ketones SMALL (NEGATIVE) Urine Blood NEGATIVE (0-5) Shlomo/ul Urine Nitrite NEGATIVE (NEGATIVE) Urine Bilirubin NEGATIVE (NEGATIVE) Urine Urobilinogen NEGATIVE (0-1) mg/dL Ur Leukocyte Esterase NEGATIVE (NEGATIVE) Urine WBC (Auto) NONE (0-5) /HPF Urine RBC (Auto) NONE (0-2) /HPF U Epithel Cells (Auto) NONE (FEW) /HPF Urine Bacteria (Auto) NONE (NEGATIVE) /HPF Urine Mucus (Auto) SLIGHT (NEGATIVE) /HPF Urine Culture Reflexed NO (NO) Urine Glucose >=500 (NEGATIVE) mg/dL - Progress Progress: improved, pain not gone completely, re-examined Progress Note: 05/09/21 18:51 50 years old is evaluated for right-sided abdominal pain. Is given fluids and symptomatic treatment, on reevaluation feeling better but pain is not completely resolved. Has normal white count, elevated glucose but not in DKA. Given IV insulin. Obtain CT abdomen pelvis with contrast which showed duodenal stranding with some adjacent fluid and some swelling around uncinate process/head of pancreas but no free air. Has normal lipase. Could be duodenal diverticulitis. Given a dose of antibiotics. Discussed with Dr. Esparza and patient is accepted for admission. Discussed with .: Valdemar Will see patient in: hospital (observation) Counseled pt/family regarding: lab results, diagnosis, rad results - Departure Departure Disposition: Observation Clinical Impression: Diverticulitis of duodenum Condition: Stable Critical Care Time: No Referrals: ESTHER PIERCE NP [Primary Care Provider] -
[2021-05-09 15:02] LABS: Absolute Neutrophil Ct (ANC) 6.27 (1.4-6.9); BASOPHIL % 0.5 % (0.0-0.4); Basophil (Absolute #) 0.04 (0-0.4); Eosinophil % 0.4 % (0.00-5.0); Eosinophil (Absolute #) 0.03 (0-0.5); Hemoglobin 15.3 gm/dl (12.5-18.0); Lymphocyte (Absolute #) 1.33 (1.0-4.6); Lymphocytes % 16.3 % (24.0-44.0); Mean Cell Volume 83.2 fl (78-100); Mean Corpuscular Hemoglobin 29.6 pg (26-32); Mean Corpuscular Hgb Concent. 35.6 g/dl (32-36); Mean Platelet Volume 9.1 fl (7.5-11.0); Monocyte (Absolute #) 0.49 (0.0-1.3); Neutrophil % 76.8 % (36.0-66.0); Platelet Count 182 K/mm3 (150-450); Red Blood Count 5.17 M/mm3 (4.1-5.6); Red Cell Distribution Width 12.9 % (11.5-14.0); White Blood Count 8.2 K/mm3 (4.0-10.5)
[2021-05-09 15:10] LABS: ALBUMIN 4.1 g/dL (3.5-5.0); ALKALINE PHOSPHATASE 71 U/L (38-126); ANION GAP 16.2 MEQ/L (5-15); BLOOD UREA NITROGEN 19 mg/dL (9-20); CHLORIDE 96 mmol/L (98-107); Calcium 8.9 mg/dL (8.4-10.2); Carbon Dioxide 22 mmol/L (22-30); Creatinine 1 0.98 mg/dL (0.66-1.25); EST GLOMERULAR FILTRATION RATE > 60.0 ML/MIN; Glucose 417 mg/dL (74-106); LIPASE 117 U/L (23-300); Potassium 4.3 mmol/L (3.5-5.1); SGOT/AST 19 U/L (17-59); SGPT/ALT 25 U/L (0-50); SODIUM 130 mmol/L (137-145); Total Protein 7.4 g/dL (6.3-8.2)
[2021-05-09 15:12] LABS: Appearance CLEAR (CLEAR); Bilirubin NEGATIVE (NEGATIVE); Blood NEGATIVE Ery/ul (0-5); Glucose >=500 mg/dL (NEGATIVE); Ketones SMALL (NEGATIVE); Leukocyte Esterase NEGATIVE (NEGATIVE); Mucus SLIGHT /HPF (NEGATIVE); Nitrite NEGATIVE (NEGATIVE); Protein,Urine Dip NEGATIVE (Negative); Specific Gravity 1.031 (1.005-1.025); Urobilinogen NEGATIVE mg/dL (0-1)
[2021-05-09] MEDS ORDERED: HUMULIN R IV ONE (18:10)
[2021-05-09] MEDS ORDERED: HUMULIN R ONE (18:12)
[2021-05-09] MEDS ORDERED: LEVOFLOXACIN 750MG/150ML D5W 750 MG/150 ML BAG IV STA (18:50)
[2021-05-09] MEDS ORDERED: FLAGYL 500 MG IVPB 500 MG/100 ML BAG IV STA (18:50)
[2021-05-09] MEDS ORDERED: FLAGYL 500 MG IVPB 500 MG/100 ML BAG IV ONE (18:53)
[2021-05-09] MEDS ORDERED: Sodium Chloride 0.9% 1000 ML 1,000 ML IV SCH (19:00)
[2021-05-09] MEDS ORDERED: LEVOFLOXACIN 750MG/150ML D5W 750 MG/150 ML BAG IV ONE (19:22)
--- NOTE | 2021-05-09 19:56 | XRAY ---
Indication: Right lower quadrant pain. Multiple contiguous axial images obtained through the abdomen and pelvis using 100 cc Isovue 370 contrast. Comparison: January 30, 2020. Lung bases demonstrates minimal dependent atelectasis. Heart not enlarged. Noncontrasted stomach and bowel loops are nonobstructed. Descending and transverse duodenum demonstrates new mild wall thickening and stranding favoring duodenitis. Tiny free fluid. No walled off fluid or free air. Normal air-filled appendix. Again mild scattered colonic diverticulosis without diverticulitis. Spleen remains enlarged today measuring 16.2 cm. Again previous cholecystectomy. Remaining liver, pancreas, spleen, adrenal glands, kidneys, ureters, bladder, and aorta are unremarkable. No pathologic retroperitoneal lymphadenopathy. Osseous structures intact. Again with minimal degenerative changes throughout the lumbar spine and both hips. Impression: 1. New duodenal wall thickening and stranding favoring duodenitis. Tiny reactive free fluid. 2. Again incidental colonic diverticulosis, splenomegaly, and chronic bony findings. Comment: Preliminary interpretation made by [facility]. No critical discrepancy.
[2021-05-09] MEDS ORDERED: DUONEB 0.5-3 MG/3 ml Neb IH PRN (21:47)
[2021-05-09] MEDS ORDERED: HUMALOG SQ PRN (21:47)
[2021-05-09] MEDS ORDERED: MORPHINE SULFATE 4 MG INJ IV PRN (21:47)
[2021-05-09] MEDS ORDERED: Hydromorphone 1 mg/ml Injection IV PRN (23:14)
[2021-05-09] MEDS ORDERED: OXYCODONE-ACETAMINOPHEN 10-325 PO PRN (23:15)
[2021-05-09] MEDS ORDERED: Hydromorphone 1 mg/ml Injection ONE (23:18)
[2021-05-09] MEDS ORDERED: ZOCOR 20MG PO SCH (23:30)
[2021-05-09] MEDS ORDERED: Lantus Insulin SQ SCH (23:30)
[2021-05-09] MEDS ORDERED: DESYREL 50 MG PO SCH (23:30)
[2021-05-09] MEDS ORDERED: hydroDIURIL 25 MG PO SCH (23:30)
[2021-05-09] MEDS ORDERED: Pepcid 20 MG VIAL IV SCH (23:30)
[2021-05-09] MEDS ORDERED: Zestril 20 MG PO SCH (23:30)
[2021-05-09] MEDS ORDERED: Lyrica 50MG PO ONE (23:30)
[2021-05-09] MEDS ORDERED: Trileptal 300 MG Tablet PO SCH (23:30)
[2021-05-09] MEDS ORDERED: Protonix 40MG Tablet PO SCH (23:30)
[2021-05-09] MEDS ORDERED: LYRICA 100MG ONE (23:54)
[2021-05-10] MEDS: Sodium Chloride 0.9% 1000 ML 1,000 ML IV SCH ×2 (00:03→03:57)
[2021-05-10] MEDS: FLAGYL 500 MG IVPB 500 MG/100 ML BAG IV SCH ×2 (00:05→05:38)
[2021-05-10 04:13] VITALS: O2SAT 94
[2021-05-10 05:29] LABS: BASOPHIL % 0.3 % (0.0-0.4); Basophil (Absolute #) 0.02 (0-0.4); Eosinophil % 0.7 % (0.00-5.0); Eosinophil (Absolute #) 0.05 (0-0.5); Hematocrit 38.6 % (42-50); Hemoglobin 13.2 gm/dl (12.5-18.0); Lymphocyte (Absolute #) 1.36 (1.0-4.6); Lymphocytes % 19.6 % (24.0-44.0); Mean Cell Volume 85.2 fl (78-100); Mean Corpuscular Hemoglobin 29.1 pg (26-32); Mean Corpuscular Hgb Concent. 34.2 g/dl (32-36); Mean Platelet Volume 9.2 fl (7.5-11.0); Monocyte (Absolute #) 0.51 (0.0-1.3); Monocytes % 7.3 % (0.0-12.0); Neutrophil % 72.1 % (36.0-66.0); Platelet Count 178 K/mm3 (150-450); Red Blood Count 4.53 M/mm3 (4.1-5.6); Red Cell Distribution Width 12.9 % (11.5-14.0); White Blood Count 6.9 K/mm3 (4.0-10.5)
[2021-05-10 05:37] LABS: ALBUMIN 3.4 g/dL (3.5-5.0); ALKALINE PHOSPHATASE 56 U/L (38-126); AMYLASE 49 U/L (30-110); ANION GAP 13.9 MEQ/L (5-15); BLOOD UREA NITROGEN 17 mg/dL (9-20); CHLORIDE 99 mmol/L (98-107); Carbon Dioxide 23 mmol/L (22-30); Creatinine 1 0.83 mg/dL (0.66-1.25); EST GLOMERULAR FILTRATION RATE > 60.0 ML/MIN; Glucose 204 mg/dL (74-106); LIPASE 73 U/L (23-300); Potassium 3.9 mmol/L (3.5-5.1); SGOT/AST 19 U/L (17-59); SGPT/ALT 23 U/L (0-50); SODIUM 132 mmol/L (137-145); Total Protein 6.3 g/dL (6.3-8.2)
--- NOTE | 2021-05-10 08:49 | PCM.HP ---
History of Present Illness - Chief Complaint Chief Complaint: Duodenum diverticulitis History of Present Illness: Mr.THOMAS ROYAL is a 50 year old male pt of Dr. Jones with DM II on insulin who was admitted with RLQ pain and nausea. He started having pain 3d ago, went to [facility] 2 d ago. Was called at home by and advised to go to ER so he could have CT abd/pelvis done. CT showed duodenitis. Pt describes intense rebound pain at [facility] care. Reported fever at home to 103. +N, no V. No diarrhea, no melena or hematochezia. Was sitting in chair Fri a.m. watching TV and noticed his abd hurt when he pushed on it - intense cramping - RUQ and RLQ. Worse with eating and throughout the day. Next day, temp (auricular) was >103, was alternating Tylenol and ibuprofen. Labs and XR sent and pt discharged to home. SERVER ASSISTANT called to check on him the next day, and recommended he go to ER for CT (was concerned about appendicitis due to rebound pain). Pain was 9/10 in ER. Today not having any pain, but maybe 1/10 with pushing on it. Supposed to be on methotrexate, but hasn't been on it for "a very long time." Needs to be going to his rheumatology appt which is scheduled for 8:30 tomorrow. Has been out of humalog for over 5 weeks - used to take 2-3 units with meals. Sees Natalie Mc and has called her office; having difficulty setting up an appointment. - Review of Systems Constitutional: Fever Abdominal/Gastrointestinal: Abdominal Pain, Nausea Musculoskeletal: Back Pain (arthritis, chronic) Neurological: Headache (x 5 wks, frontl, gets yearly), Parasthesia (feet and hands, chronic) All Other Systems: Reviewed and Negative Medications & Allergies Home Medications: Home Medication List Insulin Lispro [Humalog] 1 unit SQ TIDWMEALS 12/12/18 [History Confirmed 05/09/21] Lisinopril/Hydrochlorothiazide [Lisinopril-Hctz 20-12.5 mg Tab] 1 tab PO QHS 12/12/18 [History Confirmed 05/09/21] Metformin HCl 850 mg [Glucophage 850 MG] 850 mg PO BID 05/15/19 [History Confirmed 05/09/21] Trazodone HCl 100 mg PO HS 12/12/18 [History Confirmed 05/09/21] Omeprazole Magnesium 20 mg PO QHS 12/17/20 [History Confirmed 05/09/21] Oxcarbazepine [Trileptal] 300 mg PO QHS 12/17/20 [History Confirmed 05/09/21] Atorvastatin Calcium 40 mg PO QHS 05/09/21 [History Confirmed 05/09/21] Insulin Glargine,Hum.rec.anlog [Touaaron Solostmaya] 40 units SQ QHS 05/09/21 [History Confirmed 05/09/21] Pregabalin 200 mg PO TID 05/09/21 [History Confirmed 05/09/21] Allergies/Adverse Reactions: Allergies Allergy/AdvReac Type Severity Reaction Status Date / Time cephalexin [From Keflex] Allergy Severe Verified 05/09/21 14:38 diphenhydramine HCl Allergy Severe Tightness Verified 05/09/21 14:38 [From Benadryl] of Throat erythromycin base Allergy Severe Shortness Verified 05/09/21 14:38 of Breath olmesartan Allergy Severe Difficulty Verified 05/09/21 14:38 Swallowing Penicillins Allergy Severe Shortness Verified 05/09/21 14:38 of Breath morphine Allergy Verified 05/09/21 21:52 - Past Medical History Past Medical History: Yes Neurological History: No Pertinent History ENT History: No Pertinent History Cardiac History: High Cholesterol, Hypertension Respiratory History: No Pertinent History Endocrine Medical History: Diabetes Type II Musculoskelatal History: Degenerative Disk Disease GI Medical History: No Pertinent History History: No Pertinent History Pyscho-Social History: No Pertinent History Male Reproductive Disorders: No Pertinent History Comment: psoriatic arthritis - Past Surgical History Past Surgical History: Yes Neuro Surgical History: No Pertinent History Cardiac History: Cardiac Catheterization Respiratory Surgery: No Pertinent History GI Surgical History: Cholecystectomy Genitourinary Surgical Hx: No Pertinent History Musculskeletal Surgical Hx: Orthopedic Surgery Male Surgical History: No Pertinent History Other Surgical History: cyst removed from back 2018, 3 spinal injections - Social History Smoking Status: Never smoker Exposure to second hand smoke: No Alcohol: None Drug Use: none - Physical Exam Vital Signs: Vital Signs - 24 hr Temp Pulse Resp BP Pulse Ox 05/10/21 04:12 97.8 F 73 16 121/61 94 L 05/09/21 21:00 78 20 121/82 96 05/09/21 20:00 80 16 96 05/09/21 19:53 95 05/09/21 19:00 80 16 130/74 96 05/09/21 18:00 98.1 F 76 18 125/88 96 05/09/21 17:00 80 20 96 05/09/21 16:14 84 16 127/75 96 05/09/21 15:29 88 16 156/113 97 05/09/21 14:43 98.7 F 87 18 177/88 95 General Appearance: no apparent distress, alert Neurologic Exam: oriented x 3, cooperative Eye Exam: eyes nml inspection Ears, Nose, Throat Exam: moist mucous membranes Neck Exam: normal inspection, non-tender, No lymphadenopathy Respiratory Exam: normal breath sounds, chest tenderness, No crackles/rales, No rhonchi, No wheezing Cardiovascular Exam: regular rate/rhythm, normal heart sounds, No murmur Gastrointestinal/Abdomen Exam: soft, normal bowel sounds, tenderness (epigastrum, mild), No distention, No mass, No guarding, No rebound Back Exam: normal inspection, No CVA tenderness Extremity Exam: No pedal edema, No swelling Skin Exam: normal color, warm, dry, No rash Results - Labs Lab/Micro Results: Lab Results-Last 24 Hours 05/09/21 05/09/21 05/09/21 Range/Units 14:59 15:03 15:03 WBC 8.2 (4.0-10.5) K/mm3 RBC 5.17 (4.1-5.6) M/mm3 Hgb 15.3 (12.5-18.0) gm/dl Hct 43.0 (42-50) % MCV 83.2 (78-100) fl MCH 29.6 (26-32) pg MCHC 35.6 (32-36) g/dl RDW 12.9 (11.5-14.0) % Plt Count 182 (150-450) K/mm3 MPV 9.1 (7.5-11.0) fl Gran % 76.8 H (36.0-66.0) % Eos # (Auto) 0.03 (0-0.5) Absolute Lymphs (auto) 1.33 (1.0-4.6) Absolute Monos (auto) 0.49 (0.0-1.3) Lymphocytes % 16.3 L (24.0-44.0) % Monocytes % 6.0 (0.0-12.0) % Eosinophils % 0.4 (0.00-5.0) % Basophils % 0.5 (0.0-0.4) % Absolute Granulocytes 6.27 (1.4-6.9) Basophils # 0.04 (0-0.4) Sodium 130 L (137-145) mmol/L Potassium 4.3 (3.5-5.1) mmol/L Chloride 96 L (98-107) mmol/L Carbon Dioxide 22 (22-30) mmol/L Anion Gap 16.2 H (5-15) MEQ/L BUN 19 (9-20) mg/dL Creatinine 0.98 (0.66-1.25) mg/dL Estimated GFR > 60.0 ML/MIN Glucose 417 H (74-106) mg/dL POC Glucometer (74 to 106) mg/dL Calcium 8.9 (8.4-10.2) mg/dL Total Bilirubin 2.70 H (0.2-1.3) mg/dL AST 19 (17-59) U/L ALT 25 (0-50) U/L Alkaline Phosphatase 71 (38-126) U/L Serum Total Protein 7.4 (6.3-8.2) g/dL Albumin 4.1 (3.5-5.0) g/dL Amylase (30-110) U/L Lipase 117 (23-300) U/L Urine Color YELLOW (YELLOW) Urine Appearance CLEAR (CLEAR) Urine pH 5.0 (5-6) Ur Specific [place] 1.031 (1.005-1.025) Urine Protein NEGATIVE (Negative) Urine Ketones SMALL (NEGATIVE) Urine Blood NEGATIVE (0-5) Shlomo/ul Urine Nitrite NEGATIVE (NEGATIVE) Urine Bilirubin NEGATIVE (NEGATIVE) Urine Urobilinogen NEGATIVE (0-1) mg/dL Ur Leukocyte Esterase NEGATIVE (NEGATIVE) Urine WBC (Auto) NONE (0-5) /HPF Urine RBC (Auto) NONE (0-2) /HPF U Epithel Cells (Auto) NONE (FEW) /HPF Urine Bacteria (Auto) NONE (NEGATIVE) /HPF Urine Mucus (Auto) SLIGHT (NEGATIVE) /HPF Urine Culture Reflexed NO (NO) Urine Glucose >=500 (NEGATIVE) mg/dL SARS-CoV-2 (PCR) (NEGATIVE) 05/09/21 05/09/21 05/09/21 Range/Units 18:08 20:16 21:59 WBC (4.0-10.5) K/mm3 RBC (4.1-5.6) M/mm3 Hgb (12.5-18.0) gm/dl Hct (42-50) % MCV (78-100) fl MCH (26-32) pg MCHC (32-36) g/dl RDW (11.5-14.0) % Plt Count (150-450) K/mm3 MPV (7.5-11.0) fl Gran % (36.0-66.0) % Eos # (Auto) (0-0.5) Absolute Lymphs (auto) (1.0-4.6) Absolute Monos (auto) (0.0-1.3) Lymphocytes % (24.0-44.0) % Monocytes % (0.0-12.0) % Eosinophils % (0.00-5.0) % Basophils % (0.0-0.4) % Absolute Granulocytes (1.4-6.9) Basophils # (0-0.4) Sodium (137-145) mmol/L Potassium (3.5-5.1) mmol/L Chloride (98-107) mmol/L Carbon Dioxide (22-30) mmol/L Anion Gap (5-15) MEQ/L BUN (9-20) mg/dL Creatinine (0.66-1.25) mg/dL Estimated GFR ML/MIN Glucose (74-106) mg/dL POC Glucometer 366 H 242 H (74 to 106) mg/dL Calcium (8.4-10.2) mg/dL Total Bilirubin (0.2-1.3) mg/dL AST (17-59) U/L ALT (0-50) U/L Alkaline Phosphatase (38-126) U/L Serum Total Protein (6.3-8.2) g/dL Albumin (3.5-5.0) g/dL Amylase (30-110) U/L Lipase (23-300) U/L Urine Color (YELLOW) Urine Appearance (CLEAR) Urine pH (5-6) Ur Specific [place] (1.005-1.025) Urine Protein (Negative) Urine Ketones (NEGATIVE) Urine Blood (0-5) Shlomo/ul Urine Nitrite (NEGATIVE) Urine Bilirubin (NEGATIVE) Urine Urobilinogen (0-1) mg/dL Ur Leukocyte Esterase (NEGATIVE) Urine WBC (Auto) (0-5) /HPF Urine RBC (Auto) (0-2) /HPF U Epithel Cells (Auto) (FEW) /HPF Urine Bacteria (Auto) (NEGATIVE) /HPF Urine Mucus (Auto) (NEGATIVE) /HPF Urine Culture Reflexed (NO) Urine Glucose (NEGATIVE) mg/dL SARS-CoV-2 (PCR) NEGATIVE (NEGATIVE) 05/10/21 05/10/21 05/10/21 Range/Units 04:50 04:50 07:36 WBC 6.9 (4.0-10.5) K/mm3 RBC 4.53 (4.1-5.6) M/mm3 Hgb 13.2 (12.5-18.0) gm/dl Hct 38.6 L (42-50) % MCV 85.2 (78-100) fl MCH 29.1 (26-32) pg MCHC 34.2 (32-36) g/dl RDW 12.9 (11.5-14.0) % Plt Count 178 (150-450) K/mm3 MPV 9.2 (7.5-11.0) fl Gran % 72.1 H (36.0-66.0) % Eos # (Auto) 0.05 (0-0.5) Absolute Lymphs (auto) 1.36 (1.0-4.6) Absolute Monos (auto) 0.51 (0.0-1.3) Lymphocytes % 19.6 L (24.0-44.0) % Monocytes % 7.3 (0.0-12.0) % Eosinophils % 0.7 (0.00-5.0) % Basophils % 0.3 (0.0-0.4) % Absolute Granulocytes 5.00 (1.4-6.9) Basophils # 0.02 (0-0.4) Sodium 132 L (137-145) mmol/L Potassium 3.9 (3.5-5.1) mmol/L Chloride 99 (98-107) mmol/L Carbon Dioxide 23 (22-30) mmol/L Anion Gap 13.9 (5-15) MEQ/L BUN 17 (9-20) mg/dL Creatinine 0.83 (0.66-1.25) mg/dL Estimated GFR > 60.0 ML/MIN Glucose 204 H (74-106) mg/dL POC Glucometer 148 H (74 to 106) mg/dL Calcium 8.0 L (8.4-10.2) mg/dL Total Bilirubin 1.70 H (0.2-1.3) mg/dL AST 19 (17-59) U/L ALT 23 (0-50) U/L Alkaline Phosphatase 56 (38-126) U/L Serum Total Protein 6.3 (6.3-8.2) g/dL Albumin 3.4 L (3.5-5.0) g/dL Amylase 49 (30-110) U/L Lipase 73 (23-300) U/L Urine Color (YELLOW) Urine Appearance (CLEAR) Urine pH (5-6) Ur Specific [place] (1.005-1.025) Urine Protein (Negative) Urine Ketones (NEGATIVE) Urine Blood (0-5) Shlomo/ul Urine Nitrite (NEGATIVE) Urine Bilirubin (NEGATIVE) Urine Urobilinogen (0-1) mg/dL Ur Leukocyte Esterase (NEGATIVE) Urine WBC (Auto) (0-5) /HPF Urine RBC (Auto) (0-2) /HPF U Epithel Cells (Auto) (FEW) /HPF Urine Bacteria (Auto) (NEGATIVE) /HPF Urine Mucus (Auto) (NEGATIVE) /HPF Urine Culture Reflexed (NO) Urine Glucose (NEGATIVE) mg/dL SARS-CoV-2 (PCR) (NEGATIVE) Accuchecks Date 05/09/21 Date 05/09/21 Time 21:45 Time 18:09 - Radiology Impressions Radiology Exams & Impressions: Radiology Procedures Category Date Time Status ABDOMEN AND PELVIS W CONTRAST [CT] Stat Exams 05/09/21 14:57 Completed Assessment/Plan (1) Duodenitis Current Visit: Yes Status: Acute Assessment & Plan: Much improved today. WBC were wnl. If tolerates bland diet, home on bland x 3d and flagyl/levaquin to finish 7d. F/u with Rosemarie Pedroza in 1 week. Code(s): K29.80 - DUODENITIS WITHOUT BLEEDING (2) Diabetes mellitus Current Visit: Yes Status: Acute Code(s): E11.9 - TYPE 2 DIABETES MELLITUS WITHOUT COMPLICATIONS (3) Diabetic peripheral neuropathy Current Visit: Yes Status: Acute Code(s): E11.42 - TYPE 2 DIABETES MELLITUS WITH DIABETIC POLYNEUROPATHY (4) Chronic back pain Current Visit: Yes Status: Acute Code(s): M54.9 - DORSALGIA, UNSPECIFIED; G89.29 - OTHER CHRONIC PAIN
--- NOTE | 2021-05-10 09:14 | PCM.DS ---
Discharge Summary Date of Admission: 05/09/21 21:46 Admitting Physician: CARON JAIN DO Primary Care Provider: ESTHER PEDROZA Allergies Allergies cephalexin [From Keflex] Allergy (Severe, Verified 05/09/21 14:38) diphenhydramine HCl [From Benadryl] Allergy (Severe, Verified 05/09/21 14:38) Tightness of Throat had to call EMS erythromycin base Allergy (Severe, Verified 05/09/21 14:38) Shortness of Breath olmesartan Allergy (Severe, Verified 05/09/21 14:38) Difficulty Swallowing Penicillins Allergy (Severe, Verified 05/09/21 14:38) Shortness of Breath unknown, states "when i was a kid,my mom always said" morphine Allergy (Verified 05/09/21 21:52) burning of skin and head Hospital Summary - Hospital Course Hospital Course: Mr. Contreras is a 50 yo male pt of Rosemarie Pedroza from [facility] with DM, peripheral neuropathy, psoriasis with arthropathy and chronic back pain who was admitted through ER with 3d of abd pain and duodenitis. WBC nl and CT abd/pelvis with thickening of duodenum. Places on flagyl and levaquin. This morning he is feeling much better. If he tolerates bland food, he will be discahrged to home on levaquin and flagyl to finish 7d total. - Vitals & Intake/Output Vital Signs: Vital Signs Temperature 97.8 F 05/10/21 04:12 Pulse Rate 73 05/10/21 04:12 Respiratory Rate 16 05/10/21 04:12 Blood Pressure 121/61 05/10/21 04:12 O2 Sat by Pulse Oximetry 94 L 05/10/21 04:12 Intake & Output: Intake & Output 05/07/21 05/08/21 05/09/21 05/10/21 11:59 11:59 11:59 11:59 Intake Total 1300 Balance 1300 Weight 114.6 kg - Lab Result Diagrams: 05/10/21 04:50 05/10/21 04:50 Lab Results-Last 24 Hrs: Lab Results-Last 24 Hours 05/09/21 05/09/21 05/09/21 Range/Units 14:59 15:03 15:03 WBC 8.2 (4.0-10.5) K/mm3 RBC 5.17 (4.1-5.6) M/mm3 Hgb 15.3 (12.5-18.0) gm/dl Hct 43.0 (42-50) % MCV 83.2 (78-100) fl MCH 29.6 (26-32) pg MCHC 35.6 (32-36) g/dl RDW 12.9 (11.5-14.0) % Plt Count 182 (150-450) K/mm3 MPV 9.1 (7.5-11.0) fl Gran % 76.8 H (36.0-66.0) % Eos # (Auto) 0.03 (0-0.5) Absolute Lymphs (auto) 1.33 (1.0-4.6) Absolute Monos (auto) 0.49 (0.0-1.3) Lymphocytes % 16.3 L (24.0-44.0) % Monocytes % 6.0 (0.0-12.0) % Eosinophils % 0.4 (0.00-5.0) % Basophils % 0.5 (0.0-0.4) % Absolute Granulocytes 6.27 (1.4-6.9) Basophils # 0.04 (0-0.4) Sodium 130 L (137-145) mmol/L Potassium 4.3 (3.5-5.1) mmol/L Chloride 96 L (98-107) mmol/L Carbon Dioxide 22 (22-30) mmol/L Anion Gap 16.2 H (5-15) MEQ/L BUN 19 (9-20) mg/dL Creatinine 0.98 (0.66-1.25) mg/dL Estimated GFR > 60.0 ML/MIN Glucose 417 H (74-106) mg/dL POC Glucometer (74 to 106) mg/dL Calcium 8.9 (8.4-10.2) mg/dL Total Bilirubin 2.70 H (0.2-1.3) mg/dL AST 19 (17-59) U/L ALT 25 (0-50) U/L Alkaline Phosphatase 71 (38-126) U/L Serum Total Protein 7.4 (6.3-8.2) g/dL Albumin 4.1 (3.5-5.0) g/dL Amylase (30-110) U/L Lipase 117 (23-300) U/L Urine Color YELLOW (YELLOW) Urine Appearance CLEAR (CLEAR) Urine pH 5.0 (5-6) Ur Specific [place] 1.031 (1.005-1.025) Urine Protein NEGATIVE (Negative) Urine Ketones SMALL (NEGATIVE) Urine Blood NEGATIVE (0-5) Shlomo/ul Urine Nitrite NEGATIVE (NEGATIVE) Urine Bilirubin NEGATIVE (NEGATIVE) Urine Urobilinogen NEGATIVE (0-1) mg/dL Ur Leukocyte Esterase NEGATIVE (NEGATIVE) Urine WBC (Auto) NONE (0-5) /HPF Urine RBC (Auto) NONE (0-2) /HPF U Epithel Cells (Auto) NONE (FEW) /HPF Urine Bacteria (Auto) NONE (NEGATIVE) /HPF Urine Mucus (Auto) SLIGHT (NEGATIVE) /HPF Urine Culture Reflexed NO (NO) Urine Glucose >=500 (NEGATIVE) mg/dL SARS-CoV-2 (PCR) (NEGATIVE) 05/09/21 05/09/21 05/09/21 Range/Units 18:08 20:16 21:59 WBC (4.0-10.5) K/mm3 RBC (4.1-5.6) M/mm3 Hgb (12.5-18.0) gm/dl Hct (42-50) % MCV (78-100) fl MCH (26-32) pg MCHC (32-36) g/dl RDW (11.5-14.0) % Plt Count (150-450) K/mm3 MPV (7.5-11.0) fl Gran % (36.0-66.0) % Eos # (Auto) (0-0.5) Absolute Lymphs (auto) (1.0-4.6) Absolute Monos (auto) (0.0-1.3) Lymphocytes % (24.0-44.0) % Monocytes % (0.0-12.0) % Eosinophils % (0.00-5.0) % Basophils % (0.0-0.4) % Absolute Granulocytes (1.4-6.9) Basophils # (0-0.4) Sodium (137-145) mmol/L Potassium (3.5-5.1) mmol/L Chloride (98-107) mmol/L Carbon Dioxide (22-30) mmol/L Anion Gap (5-15) MEQ/L BUN (9-20) mg/dL Creatinine (0.66-1.25) mg/dL Estimated GFR ML/MIN Glucose (74-106) mg/dL POC Glucometer 366 H 242 H (74 to 106) mg/dL Calcium (8.4-10.2) mg/dL Total Bilirubin (0.2-1.3) mg/dL AST (17-59) U/L ALT (0-50) U/L Alkaline Phosphatase (38-126) U/L Serum Total Protein (6.3-8.2) g/dL Albumin (3.5-5.0) g/dL Amylase (30-110) U/L Lipase (23-300) U/L Urine Color (YELLOW) Urine Appearance (CLEAR) Urine pH (5-6) Ur Specific [place] (1.005-1.025) Urine Protein (Negative) Urine Ketones (NEGATIVE) Urine Blood (0-5) Shlomo/ul Urine Nitrite (NEGATIVE) Urine Bilirubin (NEGATIVE) Urine Urobilinogen (0-1) mg/dL Ur Leukocyte Esterase (NEGATIVE) Urine WBC (Auto) (0-5) /HPF Urine RBC (Auto) (0-2) /HPF U Epithel Cells (Auto) (FEW) /HPF Urine Bacteria (Auto) (NEGATIVE) /HPF Urine Mucus (Auto) (NEGATIVE) /HPF Urine Culture Reflexed (NO) Urine Glucose (NEGATIVE) mg/dL SARS-CoV-2 (PCR) NEGATIVE (NEGATIVE) 05/10/21 05/10/21 05/10/21 Range/Units 04:50 04:50 07:36 WBC 6.9 (4.0-10.5) K/mm3 RBC 4.53 (4.1-5.6) M/mm3 Hgb 13.2 (12.5-18.0) gm/dl Hct 38.6 L (42-50) % MCV 85.2 (78-100) fl MCH 29.1 (26-32) pg MCHC 34.2 (32-36) g/dl RDW 12.9 (11.5-14.0) % Plt Count 178 (150-450) K/mm3 MPV 9.2 (7.5-11.0) fl Gran % 72.1 H (36.0-66.0) % Eos # (Auto) 0.05 (0-0.5) Absolute Lymphs (auto) 1.36 (1.0-4.6) Absolute Monos (auto) 0.51 (0.0-1.3) Lymphocytes % 19.6 L (24.0-44.0) % Monocytes % 7.3 (0.0-12.0) % Eosinophils % 0.7 (0.00-5.0) % Basophils % 0.3 (0.0-0.4) % Absolute Granulocytes 5.00 (1.4-6.9) Basophils # 0.02 (0-0.4) Sodium 132 L (137-145) mmol/L Potassium 3.9 (3.5-5.1) mmol/L Chloride 99 (98-107) mmol/L Carbon Dioxide 23 (22-30) mmol/L Anion Gap 13.9 (5-15) MEQ/L BUN 17 (9-20) mg/dL Creatinine 0.83 (0.66-1.25) mg/dL Estimated GFR > 60.0 ML/MIN Glucose 204 H (74-106) mg/dL POC Glucometer 148 H (74 to 106) mg/dL Calcium 8.0 L (8.4-10.2) mg/dL Total Bilirubin 1.70 H (0.2-1.3) mg/dL AST 19 (17-59) U/L ALT 23 (0-50) U/L Alkaline Phosphatase 56 (38-126) U/L Serum Total Protein 6.3 (6.3-8.2) g/dL Albumin 3.4 L (3.5-5.0) g/dL Amylase 49 (30-110) U/L Lipase 73 (23-300) U/L Urine Color (YELLOW) Urine Appearance (CLEAR) Urine pH (5-6) Ur Specific [place] (1.005-1.025) Urine Protein (Negative) Urine Ketones (NEGATIVE) Urine Blood (0-5) Shlomo/ul Urine Nitrite (NEGATIVE) Urine Bilirubin (NEGATIVE) Urine Urobilinogen (0-1) mg/dL Ur Leukocyte Esterase (NEGATIVE) Urine WBC (Auto) (0-5) /HPF Urine RBC (Auto) (0-2) /HPF U Epithel Cells (Auto) (FEW) /HPF Urine Bacteria (Auto) (NEGATIVE) /HPF Urine Mucus (Auto) (NEGATIVE) /HPF Urine Culture Reflexed (NO) Urine Glucose (NEGATIVE) mg/dL SARS-CoV-2 (PCR) (NEGATIVE) Micro Results-Entire Visit: Accuchecks Date 05/09/21 Date 05/09/21 Time 21:45 Time 18:09 - Radiology Exams Ordered Rad Exams-Entire Visit: Radiology Procedures Category Date Time Status ABDOMEN AND PELVIS W CONTRAST [CT] Stat Exams 05/09/21 14:57 Completed Discharge Exam General Appearance: no apparent distress, alert, obese Neurologic Exam: oriented x 3, cooperative Eye Exam: eyes nml inspection Ears, Nose, Throat Exam: moist mucous membranes Neck Exam: normal inspection, non-tender, No lymphadenopathy, No thyromegaly Respiratory Exam: normal breath sounds, lungs clear, No crackles/rales, No rhonchi, No wheezing Cardiovascular Exam: regular rate/rhythm, normal heart sounds, No murmur Gastrointestinal/Abdomen Exam: soft, normal bowel sounds, tenderness (epigastrum, mild), No distention, No mass, No guarding, No rebound Back Exam: normal inspection, No CVA tenderness, No rash Extremity Exam: normal inspection, No pedal edema, No swelling Skin Exam: normal color, warm, dry, No rash Final Diagnosis/Problem List - Final Discharge Diagnosis/Problem (1) Duodenitis Current Visit: Yes Status: Acute Assessment & Plan: Home today on levaquin and flagyl. Needs to f/u in 1 wk with Kimberlee Pedroza. Needs to have f/u regarding the duodenum (probably with GI). Code(s): K29.80 - DUODENITIS WITHOUT BLEEDING (2) Diabetes mellitus Current Visit: Yes Status: Acute Code(s): E11.9 - TYPE 2 DIABETES MELLITUS WITHOUT COMPLICATIONS (3) Diabetic peripheral neuropathy Current Visit: Yes Status: Acute Code(s): E11.42 - TYPE 2 DIABETES MELLITUS WITH DIABETIC POLYNEUROPATHY (4) Chronic back pain Current Visit: Yes Status: Acute Code(s): M54.9 - DORSALGIA, UNSPECIFIED; G89.29 - OTHER CHRONIC PAIN - Discharge Disposition: Home, Self-Care Condition: Stable Prescriptions: No Action Insulin Lispro [Humalog] 1 unit SQ TIDWMEALS Lisinopril/Hydrochlorothiazide [Lisinopril-Hctz 20-12.5 mg Tab] 1 tab PO QHS Metformin HCl 850 mg [Glucophage 850 MG] 850 mg PO BID Trazodone HCl 100 mg PO HS Omeprazole Magnesium 20 mg PO QHS Oxcarbazepine [Trileptal] 300 mg PO QHS Pregabalin 200 mg PO TID Insulin Glargine,Hum.rec.anlog [Santosh Avila] 40 units SQ QHS Atorvastatin Calcium 40 mg PO QHS Follow up with: ESTHER PEDROZA NP [Primary Care Provider] -
--- NOTE | 2021-05-10 09:21 | PCM.DCORD ---
- Discharge Disposition: Home, Self-Care Condition: Good Prescriptions: New Lactobacillus Acidophilus [Acidophilus Lactobacilli] 1 each PO TID #18 cap Metronidazole 500 mg [Flagyl 500 MG] 500 mg PO TID #18 tablet Levofloxacin [Levaquin] 500 mg PO DAILY #6 tablet Continue Lisinopril/Hydrochlorothiazide [Lisinopril-Hctz 20-12.5 mg Tab] 1 tab PO QHS Metformin HCl 850 mg [Glucophage 850 MG] 850 mg PO BID Trazodone HCl 100 mg PO HS Omeprazole Magnesium 20 mg PO QHS Oxcarbazepine [Trileptal] 300 mg PO QHS Pregabalin 200 mg PO TID Insulin Glargine,Hum.rec.anlog [Toujeo Solostar] 40 units SQ QHS Atorvastatin Calcium 40 mg PO QHS Changed Insulin Lispro [Humalog] 3 unit SQ TIDWMEALS #1 unit Additional Instructions: Wait [address] scan before resuming metformin. If any temperature over 100, increase in abdominal pain, vomiting, or other worrisome symtpoms, return to ER. Follow up with: ESTHER PIERCE NP [Primary Care Provider] -
[2021-05-10] MEDS ORDERED: MEDICATION INTERVENTION MC SCH (09:45)
[2021-05-10 09:54] VITALS: BP 177/81; PULSE 78
[2021-05-10] MEDS ORDERED: PREGABALIN 200 MG PO SCH (10:00)
[2021-05-10] MEDS ORDERED: LYRICA 100MG PO SCH (10:00)
[2021-05-10] MEDS ORDERED: PROTONIX 40 MG IV IV SCH (10:00)
[2021-05-10] MEDS ORDERED: LEVOFLOXACIN 750MG/150ML D5W 750 MG/150 ML BAG IV SCH (22:00)
== END 2021-05-10 10:45 | disposition home or self-care (01) ==
LOC: ED 14:27 → MED SURG 21:46
PROVIDERS: ADMIT Family Medicine; ATTEND Family Medicine
DX: K29.80 Duodenitis without bleeding (principal); R10.9 Unspecified abdominal pain; I10 Essential (primary) hypertension; E11.42 Type 2 diabetes mellitus with diabetic polyneuropathy; E78.00 Pure hypercholesterolemia, unspecified; R51.9 Headache, unspecified; L40.50 Arthropathic psoriasis, unspecified; R20.2 Paresthesia of skin; M54.9 Dorsalgia, unspecified; G89.29 Other chronic pain; Z79.899 Other long term (current) drug therapy; Z79.4 Long term (current) use of insulin; Z20.822 Contact with and (suspected) exposure to COVID-19
CPT/HCPCS: 36000; 36415; 74177; 80053; 81001; 82150; 82947; 83690; 85025; 96360; 96365; 96366; 96374; 96375; 96376; 99285; G0378; U0003; J1170; J1815; J1817; J1885; J1956; A9270-GY

== ENCOUNTER 2023-11-20 20:57 | Emergency (ER) | payer BC ==
[2023-11-20 21:37] VITALS: TEMP 97.3
[2023-11-20 22:20] LABS: Absolute Neutrophil Ct (ANC) 2.23 x10^3/uL (1.4-6.9); BASOPHIL % 0.4 % (0.0-0.4); Basophil (Absolute #) 0.02 x10^3/uL (0-0.4); Eosinophil % 1.2 % (0.00-5.0); Eosinophil (Absolute #) 0.06 x10^3/uL (0-0.5); Hematocrit 41.6 % (42-50); Hemoglobin 15.6 g/dL (12.5-18.0); IMMATURE GRAN # 0.02 x10^3u/L (0.00-0.03); IMMATURE GRAN % 0.4 % (0.00-0.4); Lymphocyte (Absolute #) 2.33 x10^3/uL (1.0-4.6); Lymphocytes % 46.4 % (24.0-44.0); Mean Cell Volume 84.9 fL (78-100); Mean Corpuscular Hemoglobin 31.8 pg (26-32); Mean Corpuscular Hgb Concent. 37.5 g/dL (32-36); Mean Platelet Volume 8.8 fL (7.5-11.0); Monocyte (Absolute #) 0.36 x10^3/uL (0.0-1.3); Monocytes % 7.2 % (0.0-12.0); Neutrophil % 44.4 % (36.0-66.0); Platelet Count 246 x10^3/uL (150-450); Red Cell Distribution Width 12.3 % (11.5-14.0)
[2023-11-20] MEDS ORDERED: Sodium Chloride 0.9% 1000 ML 1,000 ML ONE (22:20)
[2023-11-20] MEDS: Sodium Chloride 0.9% 1000 ML 1,000 ML IV STA (22:21)
[2023-11-20 22:35] LABS: Calcium 9.2 mg/dL (8.4-10.2); Creatinine 1 0.81 mg/dL (0.66-1.25); EST GLOMERULAR FILTRATION RATE 104.8 ML/MIN; Potassium 3.7 mmol/L (3.5-5.1)
--- NOTE | 2023-11-20 23:37 | XRAY ---
CLINICAL HISTORY: blurry vision COMPARISON: Dated: 03/19/2010 TECHNIQUE: Axial noncontrast CT scan of the brain was performed from the skull base to the high parietal region with multiple reformats. One of the following dose reduction techniques were utilized for this exam: Automated exposure control, adjustment of the mA and/or kV according to patient size, use of iterative reconstruction Dose: CTDI 53.92mGy DLP 1167.6 mGy*cm FINDINGS: The visualized brain parenchyma shows burr-white matter differentiation. No midline shift. No intracerebral or extra axial hematoma. Normal size and configuration of the cerebral ventricles. Normal CT apearance of the posterior fossa structures . The osseous structures in the skull base are unremarkable. No definite calvarium fractures. A 1.6 x 1.4 cm retention cyst/polyp is seen in left maxillary sinus. The rest of the scanned paranasal sinuses and mastoid air cells are clear. IMPRESSION: 1. No acute intracranial abnormality. 2. Apart from a small left maxillary retention cyst/polyp, no significant interval changes Electronically Signed by: Nubia Coleman MD. (11/20/2023 23:32:05 EDT)
[2023-11-20] MEDS ORDERED: TYLENOL EXTRA STRENGTH 500 MG ONE (23:57)
[2023-11-20] MEDS: TYLENOL EXTRA STRENGTH 500 MG PO STA (23:58)
[2023-11-21 00:02] VITALS: BP 156/99; PULSE 66; RESP 16; O2SAT 96
--- NOTE | 2023-11-21 00:11 | ERPHSYRPT ---
- History of Present Illness Time Seen by Provider: 11/20/23 21:50 Source: patient Exam Limitations: no limitations Patient Subjective Stated Complaint: high blood pressure, headache, double vision Triage Nursing Assessment: pt ambulated into ER without diff, pt alert and oriented x4, at bedside. Pt c/o high blood pressure, headache behind rt eye and double vision. Most symptoms started this evening but the double vision started last night. Pt does see a neurologist and pt has a follow up tomorrow with him. Pt did call the eye dr and will see her on Monday morning. Lungs clear, heart tones reg, no edema noted. No chest pain. Physician History: Patient is here with elevated blood pressure, slight headache and double vision. Patient states that over 24 hours ago, last night he started getting some double vision. States that he does have a cataract in his right eye, left eye he has contacts. States it has waxed and waned throughout the past 24 hours. States that it has improved at this point in time. Patient states that he is currently being worked up for a neurological issue with his neurologist. He had a brain MRI, T and L-spine MRI within the last week and a half. He actually has follow-up tomorrow morning in [place] with his neurologist. Patient also called his eye physician or human resources assistant and has an appointment to be seen in 48 hours with them. He got concerned today at home because he took his blood pressure while having this headache and it was elevated. Therefore he was concerned about an acute stroke. He has no other numbness, weakness. It is only isolated double vision with a slight posterior right eye headache. No other falls or trauma. Patient is taking PO well. Same number of urinations and defecations. The patient has no signs of altered mental status, nuchal rigidity, signs of meningitis. The patient is up-to-date on all vaccinations. Allergies/Adverse Reactions: cephalexin [From Keflex] Allergy (Severe, Verified 11/20/23 21:45) diphenhydramine HCl [From Benadryl] Allergy (Severe, Verified 11/20/23 21:45) Tightness of Throat had to call EMS erythromycin base Allergy (Severe, Verified 11/20/23 21:45) Shortness of Breath olmesartan Allergy (Severe, Verified 11/20/23 21:45) Difficulty Swallowing Penicillins Allergy (Severe, Verified 11/20/23 21:45) Shortness of Breath unknown, states "when i was a kid,my mom always said" morphine Allergy (Verified 11/20/23 21:45) burning of skin and head Home Medications: Trazodone HCl 100 mg PO HS 12/12/18 [History] Omeprazole Magnesium 20 mg PO QHS 12/17/20 [History] Atorvastatin Calcium 40 mg PO QHS 05/09/21 [History] Insulin Glargine,Hum.rec.anlog [Toujeo Solostar] 40 units SQ QHS 05/09/21 [History] Pregabalin 200 mg PO TID 05/09/21 [History] Exenatide Microspheres [Bydureon Bcise] 2 mg SQ DAILY 11/20/23 [History] Lisinopril 20 mg [Zestril 20 MG] 1 tab PO DAILY 11/20/23 [History] Hx Tetanus, Diphtheria Vaccination/Date Given: No Hx Influenza Vaccination/Date Given: Yes Hx Pneumococcal Vaccination/Date Given: No Immunizations Up to Date: No Travel Risk - International Travel Have you traveled outside of the country in past 3 weeks: No - Emerging Infectious Disease Are you exhibiting symptoms associated with any current EIDs: Yes Symptoms: Headaches/Body Aches/ - Past Medical History Pertinent Past Medical History: Yes Neurological History: Peripheral Neuropathy ENT History: No Pertinent History Cardiac History: High Cholesterol, Hypertension Respiratory History: No Pertinent History Endocrine Medical History: Diabetes Type II Musculoskeletal History: Other GI Medical History: Gallbladder Disease History: No Pertinent History Psycho-Social History: No Pertinent History Male Reproductive Disorders: No Pertinent History Other Medical History: PSORIATIC ARTHRITIS, trunkal neuropathy - Past Surgical History Past Surgical History: Yes Neuro Surgical History: No Pertinent History Cardiac: Cardiac Catheterization Respiratory: No Pertinent History Gastrointestinal: Cholecystectomy Genitourinary: No Pertinent History Musculoskeletal: Orthopedic Surgery Male Surgical History: No Pertinent History Other Surgical History: cyst removed from back 2018, 4 spinal injections - Social History Smoking Status: Never smoker Exposure to second hand smoke: No Drug Use: none Patient Lives Alone: No - Nursing Vital Signs Nursing Vital Signs: Initial Vital Signs Temperature 97.3 F 11/20/23 21:35 Pulse Rate 71 11/20/23 21:35 Respiratory Rate 20 11/20/23 21:35 Blood Pressure 182/93 11/20/23 21:35 O2 Sat by Pulse Oximetry 95 11/20/23 21:35 Pain Scale Pain Intensity 4 - Physical Exam SpO2: 96 Comments: 11/21/23 00:42 Review of Systems Constitutional: Negative for fever. HENT: Negative for congestion. Double vision Respiratory: Negative for shortness of breath. Cardiovascular: Negative for chest pain. Gastrointestinal: Negative for abdominal pain. Genitourinary: Negative for dysuria. Musculoskeletal: Negative for back pain. Skin: Negative for rash. Neurological: headache Psychiatric/Behavioral: Negative for behavioral problems. All other systems reviewed and are negative. Physical Exam Vitals signs and nursing note reviewed. Constitutional: Appearance: Patient is well-developed. HENT: Head: Normocephalic and atraumatic. Eyes: Conjunctiva/sclera: Conjunctivae normal. Neck: Musculoskeletal: Normal range of motion. Trachea: No tracheal deviation. Cardiovascular: Rate and Rhythm: Normal rate. Pulmonary: Effort: Pulmonary effort is normal. No respiratory distress. Abdominal: Palpations: Abdomen is soft. Musculoskeletal: General: No deformity. Skin: General: Skin is warm and dry. Neurological/ Psychiatric: Mental Status: Mental status, behavior, interaction with environment is appropriate for patient's age and condition Motor: There is no pronator drift of out-stretched arms. Muscle bulk and tone are normal. Strength is full bilaterally. Reflexes: Reflexes are 2+ and symmetric at the biceps, triceps, knees, and ankles. Plantar responses are flexor. Sensory: Light touch sense are intact in bilateral upper and lower extremities. There is no sign of neglect. Coordination: Rapid alternating movements are intact. There is no dysmetria on [id number] and [id number]. There are no abnormal or extraneous movements. Romberg is absent. Gait/Stance: Posture is normal, patient is ambultory without difficuly to bed Eye exam: Extraocular movements are intact Pupils are equally round and reactive to light Eyelids/under eyelids: normal Conjunctivae and sclera: normal Visual morelos intact, bilaterally. Vision intact grossly. No signs of proptosis, orbital cellulitis, preseptal cellulitis - Course Nursing assessment & vital signs reviewed: Yes EKG Interpreted by Me: Sinus Rhythm Ordered Tests: Active Orders 24 hr Category Date Time Status Senior Budget Analyst STAT Care 11/20/23 22:04 Completed EKG-ER Only STAT Care 11/20/23 22:04 Completed HEAD WITHOUT CONTRAST [CT] Stat Exams 11/20/23 22:05 Completed BMP Stat Lab 11/20/23 22:17 Completed CBC W DIFF Stat Lab 11/20/23 22:17 Completed TROPONIN Q4H Lab 11/20/23 22:17 Completed Medication Summary Discontinued Medications Generic Name Dose Route Start Last Admin Trade Name Jaciel PRN Reason Stop Dose Admin Acetaminophen 1,000 mg 11/20/23 23:55 11/20/23 23:58 Acetaminophen 500 Mg Tablet PO 11/20/23 23:56 1,000 mg STAT STA Administration Acetaminophen Confirm 11/20/23 23:57 Acetaminophen 500 Mg Tablet Administered 11/20/23 23:58 Dose 1,000 mg .ROUTE .STK-MED ONE Sodium Chloride 1,000 mls @ 999 mls/hr 11/20/23 22:04 11/21/23 00:15 Sodium Chloride 0.9% 1000 Ml IV 11/20/23 23:04 Infused .Q1H1M STA Infusion Sodium Chloride Confirm 11/20/23 22:20 Sodium Chloride 0.9% 1000 Ml Administered 11/20/23 22:21 Dose 1,000 mls @ ud .ROUTE .STK-MED ONE Lab/Rad Data: Laboratory Result Diagrams 11/20/23 22:17 11/20/23 22:17 Laboratory Results 11/20/23 11/20/23 11/20/23 Range/Units 22:17 22:17 22:17 WBC 5.0 (4.0-10.5) x10^3/uL RBC 4.90 (4.1-5.6) x10^6/uL Hgb 15.6 (12.5-18.0) g/dL Hct 41.6 L (42-50) % MCV 84.9 (78-100) fL MCH 31.8 (26-32) pg MCHC 37.5 H (32-36) g/dL RDW 12.3 (11.5-14.0) % Plt Count 246 (150-450) x10^3/uL MPV 8.8 (7.5-11.0) fL Gran % 44.4 (36.0-66.0) % Immature Gran % (Auto) 0.4 (0.00-0.4) % Nucleat RBC Rel Count 0.0 (0.00-0.1) % Eos # (Auto) 0.06 (0-0.5) x10^3/uL Immature Gran # (Auto) 0.02 (0.00-0.03) x10^3u/L Absolute Lymphs (auto) 2.33 (1.0-4.6) x10^3/uL Absolute Monos (auto) 0.36 (0.0-1.3) x10^3/uL Absolute Nucleated RBC 0.00 (0.00-0.01) x10^3u/L Lymphocytes % 46.4 H (24.0-44.0) % Monocytes % 7.2 (0.0-12.0) % Eosinophils % 1.2 (0.00-5.0) % Basophils % 0.4 (0.0-0.4) % Absolute Granulocytes 2.23 (1.4-6.9) x10^3/uL Basophils # 0.02 (0-0.4) x10^3/uL Sodium 137 (135-145) mmol/L Potassium 3.7 (3.5-5.1) mmol/L Chloride 103 (98-107) mmol/L Carbon Dioxide 27 (22-30) mmol/L Anion Gap 10.0 (5-15) MEQ/L BUN 16 (9-20) mg/dL Creatinine 0.81 (0.66-1.25) mg/dL Estimated GFR 104.8 ML/MIN Glucose 193 H (74-106) mg/dL Calcium 9.2 (8.4-10.2) mg/dL Troponin I < 0.012 (0.000-0.033) ng/mL - Progress Progress: improved Progress Note: 11/21/23 00:46 Differential diagnosis includes head bleed, tumor, skull fracture, electrolyte abnormality, NSTEMI, IN, malignant hypertension, - We'll obtain basic labs, fluids, EKG, troponin, chest x-ray - EKG shows no ST changes - my read - O2 saturations consistently greater than 95%. We also decided to obtain a head CT today. I have a lower suspicion for acute angle glaucoma secondary to no actual eye pain. Pupils equal round and reactive. No suspicion for central venous eye occlusion or retinal artery occlusion. No actual vision loss. No pain, less likely to be optic neuritis, retinal attachment, no floaters, no history of trauma. Workup was largely unremarkable. Troponin was negative, head CT demonstrated no acute abnormality. Patient's blood pressure mostly normalized in the emergency department without any acute intervention. I did discuss all these findings with the patient. I stated that if we truly wanted to rule out acute stroke or other issue tonight patient will need to be admitted, most likely brain MRI, further workup as an inpatient. Patient states that he already has follow-up tomorrow morning with his neurologist. He has an outpatient MRI he would like to go over with his neurologist. He was not having double vision at the time of this MRI though. Patient feels that it may be more in line with his chronic neurological issues that are appearing to progress. He also has an eye appointment in 48 hours. Given all of this, patient ultimately did decline admission to the hospital after discuss risks and benefits with him. Strict return precautions. Close follow-up as described. Counseled pt/family regarding: lab results, diagnosis, need for follow-up, rad results - Departure Departure Disposition: Home Clinical Impression: Hypertension, Double vision Condition: Stable Critical Care Time: No Referrals: ESTHER PIERCE NP [Primary Care Provider] - Follow up/PCP as directed Instructions: High blood pressure in adults, Double Vision (DC)
== END 2023-11-21 00:24 | disposition home or self-care (01) ==
LOC: ED 20:57
DX: I10 Essential (primary) hypertension (principal); H53.2 Diplopia; R51.9 Headache, unspecified; E78.5 Hyperlipidemia, unspecified; E11.42 Type 2 diabetes mellitus with diabetic polyneuropathy; Z79.4 Long term (current) use of insulin; Z79.899 Other long term (current) drug therapy
CPT/HCPCS: 36000; 36415; 70450; 80048; 84484; 85025; 93005; 93041; 96360; 99284; A9270-GY